=== PATIENT | male | born 1950 | race Caucasian/White ===

== ENCOUNTER 2018-06-21 09:46 | Inpatient (IN) ==
[2018-06-21] MEDS ORDERED: Ipratropium/Albuterol Neb 3 ML IH ONE (10:07)
--- NOTE | 2018-06-21 10:30 | Emergency Department Note ---
Disposition Clinical Impression: Adrenal mass COPD (chronic obstructive pulmonary disease) Qualifiers: COPD type: unspecified COPD Qualified Code(s): J44.9 - Chronic obstructive pulmonary disease, unspecified Disposition: Admitted As Inpatient Condition: Fair Referrals: Lety Awan APN [Primary Care Provider] - Forms: ED Satisfaction Letter Time of Disposition: 13:33 SOB HPI - General Chief Complaint: ED Shortness of Breath/Dyspnea Stated Complaint: Difficulty Breathing/"Possible Blood Clot" Time Seen by Provider: 06/21/18 09:56 Source: patient, family Mode of arrival: ambulatory Limitations: no limitations Nursing Notes Reviewed: Yes Vital Signs Reviewed: Yes - History of Present Illness 67-year-old male with history of COPD, heart failure with 4 stents presents for evaluation of multiple complaints 1 of which being difficulty breathing. Patient states he has been getting progressively short of breath over the last several days. Notes a nonproductive cough. No fevers. No chest pain. States that his dyspnea is worse with exertion but does have some dyspnea at rest. Patient does require BiPAP at night and was requiring earlier today to help with his work of breathing. Patient also states he was recently admitted for hyperglycemia 2 weeks ago. Patient is not a diabetic. Patient also notes a rash on his left lower groin and a recent discovery of an adrenal mass. Patient scheduled to see surgery with a follow-up CT scan. Patient denies abdominal pain or nausea vomiting. - Related Data Home Medications Medication Instructions Recorded Confirmed Tramadol HCl [Ultram] 50 mg PO QID PRN 11/18/16 05/21/18 Aspirin [Lo-Dose Aspirin EC] 81 mg PO DAILY 04/07/17 05/21/18 Albuterol Sulfate [Albuterol 2 puff IH Q4HR PRN 05/21/18 05/21/18 Inhaler] Atorvastatin [Lipitor] 40 mg PO HS 05/21/18 05/21/18 Cyanocobalamin/Folic AC/Vit B6 1 tab PO BID 05/21/18 05/21/18 [[place] Tablet] DULoxetine [Cymbalta] 30 mg PO DAILY 05/21/18 05/21/18 Furosemide [Lasix] 40 mg PO BID PRN 05/21/18 05/21/18 Gabapentin [Neurontin] 300 mg PO TID 05/21/18 05/21/18 Levomefolate/B6/B12/Algal Oil 1 tab PO DAILY 05/21/18 05/21/18 [Metanx Capsule] Losartan Potassium 100 mg PO DAILY 05/21/18 05/21/18 Potassium Chloride [K-Tab ER] 20 meq PO BID PRN 05/21/18 05/21/18 Tiotropium [place] [Spiriva 2 puff IH DAILY 05/21/18 05/21/18 Respimat] Previous Rx's Medication Instructions Recorded Budesonide/Formoterol 80/4.5 2 puff IH BIDR #1 inhaler 05/24/18 [Symbicort 80/4.5] Carvedilol [Coreg] 12.5 mg PO BID #30 tablet 05/24/18 Furosemide [Lasix] 20 mg PO DAILY tablet 05/24/18 Gabapentin [Neurontin] 800 mg PO TID capsule 05/24/18 Insulin DETEMIR [Levemir Flextouch] 10 unit SQ BID #5 insuln.pen 05/24/18 Potassium Chloride 20 meq PO DAILY tab.er.prt 05/24/18 glyBURIDE [GlyBURIDE] 5 mg PO 0800 #30 tablet 05/24/18 metFORMIN [Glucophage] 500 mg PO BIDWM #60 tablet 05/24/18 Allergies Allergy/AdvReac Type Severity Reaction Status Date / Time No Known Allergies Allergy Verified 12/22/17 11:12 All systems ED: reviewed and negative except as stated. Constitutional: Denies: fever Cardiovascular: Denies: chest pain Respiratory: Reports: cough, dyspnea Gastrointestinal: Denies: abdominal pain, nausea, vomiting Neurological: Reports: headache Past Medical History - Past Medical History Source: patient Medical history: Reports: arthritis, cancer, CHF, COPD, coronary artery disease, GERD, hypertension, myocardial infarction Surgical history: Reports: angioplasty/stent, knee replacement, other Psychiatric history: Reports: no psych history - Social History Smoking Status: Current every day smoker Smokeless Tobacco Status: No Alcohol use: Reports: none Drug use: Reports: none Physical Exam - General Limitations: no limitations General appearance: alert, in no apparent distress - Head Head exam: atraumatic, normocephalic, normal inspection - Eye Eye exam: Present: normal appearance - ENT ENT exam: normal exam - Neck Neck exam: Present: normal inspection - Chest Chest inspection: Present: normal inspection - Respiratory Respiratory exam: Present: normal lung sounds bilaterally, respiratory distress - Cardiovascular Cardiovascular exam: Present: regular rate - Abdominal Exam Abdominal exam: Present: soft, Non-Tender, other (Mild erythema in the left inguinal crease without any crepitus) - Extremities Exam Extremities exam: Present: normal inspection. Absent: pedal edema - Back Exam Back exam: Present: normal inspection - Neurological Exam Neurological exam: Present: alert, oriented X3, CN II-XII intact - Skin Skin exam: Present: warm, dry, intact, normal color Course Course Narrative: Patient seen and examined. Patient will get basic labs including a reentry. Patient also get a CT scan and pelvis with his history of disposition likely admission. - Reevaluation(s) Reevaluation #1: Patient seen and examined patient breathing has improved. Patient states that he does have a prior history of non-Hodgkin's lymphoma has been in remission for almost a year. Patient was updated on CT abdomen/pelvis. Time: 11:42 Reevaluation #2: Patient seen and examined. Patient is resting comfortably. Patient will be treated for COPD exacerbation. 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 Recommends patient to continue with outpatient plan evaluation for the adrenal mass. No emergent surgery indicated. Time: 13:24 Vital Signs Temperature 98.3 F 06/21/18 09:49 Pulse Rate 102 06/21/18 09:49 Respiratory Rate 22 06/21/18 09:49 Blood Pressure 124/83 06/21/18 09:49 O2 Sat by Pulse Oximetry 95 06/21/18 09:49 Temperature 98.3 F 06/21/18 09:49 Pulse Rate 93 06/21/18 12:04 Respiratory Rate 18 06/21/18 12:04 Blood Pressure 103/69 06/21/18 12:04 O2 Sat by Pulse Oximetry 95 06/21/18 12:04 Oxygen Delivery Oxygen Delivery Room Air Shortness of Breath/Dyspnea - [facility] Narrative Medical decision making narrative: Chest X-Ray 06/21/18 09:55 IMPRESSION: No evidence of acute cardiopulmonary disease. D/ / Alonzo Vigil MD / Alonzo Vigil MD Interpreting Provider: Alonzo Vigil MD Abdomen/Pelvis CT 06/21/18 10:08 IMPRESSION: Large right adrenal mass measuring approximately 8 x 6.5 x 7.7 cm in size. Given lack of FDG uptake on prior PET-CT as well as long-term stability this still likely represents adrenal adenoma. However, surgical resection should be considered given possibility of occlusion tumor and/or adrenal hemorrhage given the large size of the lesion. Enlarging centrally low attenuating left inguinal lesion measuring 4 x 3.1 x 6.3 cm in size with surrounding inflammatory changes. This may represent an enlarging centrally necrotic left inguinal lymph node given history of lymphoma. Abscess is also in the differential given its periods. Irregular 3.3 x 2.4 cm nodular opacity in the left lung base new since prior examinations. Dedicated chest CT may be helpful for further evaluation. PET-CT evaluation should also be considered. D/ / Ken Willams MD / Ken Willams MD Interpreting Provider: Ken Willams MD Patient present for concerns for dyspnea. Patient does have history of CHF and COPD. Patient was recently hospitalized for concerns of high blood sugar and was incidentally found to have an adrenal adenoma. Patient did have scheduled outpatient evaluation with surgery. Patient breathing improved after aerosols and steroids. Patient was placed on COPD coverage antibiotics. Patient did get a CT scan the abdomen pelvis given concerns of the adrenal mass. Patient is also complaining of some left lower inguinal pain with redness. Patient CT scan shows adrenal mass also shows a likely necrotic lymph node with his history of non-Hodgkin's some follow-up. Patient CTA of the chest does not reveal any recently. Patient felt comfortable being admitted for COPD exacerbation. - Lab Data Lab results reviewed: Yes I reviewed the patient's lab results. Result diagrams: 06/21/18 11:13 06/21/18 11:13 Lab Results 06/21/18 06/21/18 06/21/18 Range/Units 11:12 11:13 11:13 WBC 12.3 H (4.3-11.1) K/mcL RBC 4.33 (4.19-5.50) M/mcL Hgb 13.4 (12.9-16.9) g/dL Hct 39.9 (37.5-50.1) % MCV 92.1 (83.0-100.0) fL MCH 30.9 (28.0-33.3) pg MCHC 33.6 (31.6-35.5) g/dL RDW 16.0 H (11.5-14.5) % Plt Count 179 (140-400) K/mcL MPV 10.7 (9.4-12.4) fL Immature Gran % 2.0 (0-4) % Seg Neutrophils % 74.8 % Lymphocytes % 12.2 % Monocytes % 9.3 % Eosinophils % 1.2 % Basophils % 0.5 % Neutrophils # 9.2 H (1.6-8.9) K/mcL Lymphocytes # 1.5 (0.6-4.6) K/mcL Monocytes # 1.1 (0.0-1.3) K/mcL Eosinophils # 0.2 (0.0-0.6) K/mcL Basophils # 0.1 (0.0-0.2) K/mcL Sodium 136 (136-145) mEq/L Potassium 4.3 (3.5-5.1) mEq/L Chloride 101 (98-107) mEq/L Carbon Dioxide 26 (23-29) mEq/L BUN 16 (8-23) mg/dL Creatinine 0.84 (0.70-1.30) mg/dL Est GFR ( Amer) > 60 (> 60) Est GFR (Non-Af Amer) > 60 (> 60) BUN/Creatinine Ratio 19 (6-26) Glucose 180 H (70-105) mg/dL Calculated Osmolality 288 (280-300) Lactic Acid (0.5-2.2) mmol/L Calcium 9.9 (8.6-10.3) mg/dL Total Bilirubin 0.9 (0.3-1.0) mg/dL Direct Bilirubin 0.2 (0.0-0.2) mg/dL Indirect Bilirubin 0.7 (0.0-1.2) mg/dL AST 15 (13-39) Units/L ALT 26 (7-52) Units/L Alkaline Phosphatase 74 (34-104) Units/L Troponin I < 0.03 (< 0.04) ng/mL B-Natriuretic Peptide 80 (Less than 100) pg/mL Serum Total Protein 7.0 (6.4-8.9) g/dL Albumin 4.2 (3.5-5.7) g/dL Globulin 2.8 (2.4-3.5) g/dL Albumin/Globulin Ratio 1.5 (1.1-2.2) Urine Color (Yellow) Urine Clarity (Clear) Urine pH (5.0-8.0) pH Units Ur Specific [place] (1.010-1.025) Urine Protein (Neg-Trace) mg/dL Urine Glucose (UA) (Normal) mg/dL Urine Ketones (Negative) mg/dL Urine Blood (Negative) Urine Nitrite (Negative) Urine Bilirubin (Negative) Urine Urobilinogen (Normal) mg/dL Ur Leukocyte Esterase (Negative) Urine Microscopic RBC (0-3) per hpf Urine Microscopic WBC (0-3) per hpf Ur Squamous Epith Cells (None-Few) per lpf Urine Bacteria (None-Few) per hpf Hyaline Casts (None-Few) per lpf Ur Culture Indicated? (NO) 06/21/18 06/21/18 Range/Units 11:13 12:23 WBC (4.3-11.1) K/mcL RBC (4.19-5.50) M/mcL Hgb (12.9-16.9) g/dL Hct (37.5-50.1) % MCV (83.0-100.0) fL MCH (28.0-33.3) pg MCHC (31.6-35.5) g/dL RDW (11.5-14.5) % Plt Count (140-400) K/mcL MPV (9.4-12.4) fL Immature Gran % (0-4) % Seg Neutrophils % % Lymphocytes % % Monocytes % % Eosinophils % % Basophils % % Neutrophils # (1.6-8.9) K/mcL Lymphocytes # (0.6-4.6) K/mcL Monocytes # (0.0-1.3) K/mcL Eosinophils # (0.0-0.6) K/mcL Basophils # (0.0-0.2) K/mcL Sodium (136-145) mEq/L Potassium (3.5-5.1) mEq/L Chloride (98-107) mEq/L Carbon Dioxide (23-29) mEq/L BUN (8-23) mg/dL Creatinine (0.70-1.30) mg/dL Est GFR ( Amer) (> 60) Est GFR (Non-Af Amer) (> 60) BUN/Creatinine Ratio (6-26) Glucose (70-105) mg/dL Calculated Osmolality (280-300) Lactic Acid 1.3 (0.5-2.2) mmol/L Calcium (8.6-10.3) mg/dL Total Bilirubin (0.3-1.0) mg/dL Direct Bilirubin (0.0-0.2) mg/dL Indirect Bilirubin (0.0-1.2) mg/dL AST (13-39) Units/L ALT (7-52) Units/L Alkaline Phosphatase (34-104) Units/L Troponin I (< 0.04) ng/mL B-Natriuretic Peptide (Less than 100) pg/mL Serum Total Protein (6.4-8.9) g/dL Albumin (3.5-5.7) g/dL Globulin (2.4-3.5) g/dL Albumin/Globulin Ratio (1.1-2.2) Urine Color Dark Yellow (Yellow) Urine Clarity Clear (Clear) Urine pH 7.0 (5.0-8.0) pH Units Ur Specific [place] 1.017 (1.010-1.025) Urine Protein 30 H (Neg-Trace) mg/dL Urine Glucose (UA) Normal (Normal) mg/dL Urine Ketones Trace H (Negative) mg/dL Urine Blood Negative (Negative) Urine Nitrite Negative (Negative) Urine Bilirubin Small H (Negative) Urine Urobilinogen Normal (Normal) mg/dL Ur Leukocyte Esterase Trace H (Negative) Urine Microscopic RBC 0-3 (0-3) per hpf Urine Microscopic WBC 0-3 (0-3) per hpf Ur Squamous Epith Cells Many H (None-Few) per lpf Urine Bacteria None Seen (None-Few) per hpf Hyaline Casts None Seen (None-Few) per lpf Ur Culture Indicated? YES A (NO) - Radiology Data Radiology results reviewed: Yes I reviewed the patient's radiology results. Chest X-Ray 06/21/18 09:55 IMPRESSION: No evidence of acute cardiopulmonary disease. D/ / Alonzo Vigil MD / Alonzo Vigil MD Interpreting Provider: Alonzo Vigil MD Abdomen/Pelvis CT 06/21/18 10:08 IMPRESSION: Large right adrenal mass measuring approximately 8 x 6.5 x 7.7 cm in size. Given lack of FDG uptake on prior PET-CT as well as long-term stability this still likely represents adrenal adenoma. However, surgical resection should be considered given possibility of occlusion tumor and/or adrenal hemorrhage given the large size of the lesion. Enlarging centrally low attenuating left inguinal lesion measuring 4 x 3.1 x 6.3 cm in size with surrounding inflammatory changes. This may represent an enlarging centrally necrotic left inguinal lymph node given history of lymphoma. Abscess is also in the differential given its appearance. Irregular 3.3 x 2.4 cm nodular opacity in the left lung base new since prior examinations. Dedicated chest CT may be helpful for further evaluation. PET-CT evaluation should also be considered. D/ / 06/21/2018 10:51:03 Ken Willams MD / [email or web address] Interpreting Provider: Ken Willams MD Chest CTA 06/21/18 11:21 IMPRESSION: Negative CTA for pulmonary embolus. Finding in left lung base most consistent with an area of atelectasis or consolidative infiltrate. Lung carcinoma is thought highly unlikely. Attention on follow-up is recommended. Right adrenal mass. Please refer to the report and discussion on CT of the abdomen performed earlier in the same day. D/ / 06/21/2018 13:11:35 Rigo Franklin MD / Clarissa Trujillo Interpreting Provider: Rigo Franklin MD - EKG Data EKG attestation: Yes I reviewed and interpreted this EKG. EKG shows normal: Reports: sinus rhythm Rate: Reports: normal Rhythm: Reports: NSR [place]/QRS: Reports: left axis deviation Q waves: Reports: III, v1 Interpretation: Reports: no acute changes, nonspecific ST-T wave changes S.B.A.R. - S.B.A.R. Situation: Demographics Background: Presenting Complaint Assessment: Vital Signs, Course and respsone to treatment Recommendation: Barrier(s) to disposition, Recommendation based on pending studies, treatments, or consults S.B.A.R. Report Given to: Hospitalist Simone Repor Time: 13:31 Attestation Statement - Attestation Attestation: This documentation is done with the assistance of Dragon dictation. Despite efforts made to ensure accuracy, there may be inaccuracies in fitter type bar and segment or spelling and typographical errors. I examined this patient and my medical decision-making was reviewed with the Resident Physician. I agree with the documented findings, disposition and treatment plan as described except to the extent set forth below. Patient seen and evaluated today by Dr. Hernandez and myself, I agree with his evaluation management plan, supervise care the patient's stay. Patient comes in with increased difficulty with breathing some left leg pain and discolorations Thursday has a admission it sounds like 2 weeks ago here which we will review. We will go ahead and order the labs chest x-ray and reassess. He is in agreement with plan. Most likely admission.
[2018-06-21] MEDS ORDERED: Isovue-370 500 ML BOTTLE IVP ONE (11:21)
[2018-06-21 11:29] LABS: Basophils # 0.1 K/mcL (0.0-0.2); Basophils % 0.5 %; Eosinophils # 0.2 K/mcL (0.0-0.6); Eosinophils % 1.2 %; Hematocrit 39.9 % (37.5-50.1); Hemoglobin 13.4 g/dL (12.9-16.9); Lymphocytes # 1.5 K/mcL (0.6-4.6); Lymphocytes % 12.2 %; Mean Corpuscular HGB Conc 33.6 g/dL (31.6-35.5); Mean Corpuscular Hemoglobin 30.9 pg (28.0-33.3); Mean Corpuscular Volume 92.1 fL (83.0-100.0); Mean Platelet Volume 10.7 fL (9.4-12.4); Monocytes # 1.1 K/mcL (0.0-1.3); Monocytes % 9.3 %; Neutrophils # 9.2 K/mcL (1.6-8.9); Platelet Count 179 K/mcL (140-400); Red Blood Count 4.33 M/mcL (4.19-5.50); Segmented Neutrophils % 74.8 %
[2018-06-21 11:49] LABS: Alanine Aminotransferase 26 Units/L (7-52); Albumin 4.2 g/dL (3.5-5.7); Albumin/Globulin Ratio 1.5 (1.1-2.2); Alkaline Phosphatase 74 Units/L (34-104); Aspartate Amino Transferase 15 Units/L (13-39); BUN/Creatinine Ratio 19 (6-26); Bilirubin,Direct 0.2 mg/dL (0.0-0.2); Bilirubin,Indirect 0.7 mg/dL (0.0-1.2); Bilirubin,Total 0.9 mg/dL (0.3-1.0); Blood Urea Nitrogen 16 mg/dL (8-23); Calcium 9.9 mg/dL (8.6-10.3); Carbon Dioxide 26 mEq/L (23-29); Chloride 101 mEq/L (98-107); Globulin 2.8 g/dL (2.4-3.5); Glucose 180 mg/dL (70-105); Osmolality,Calculated 288 (280-300); Potassium 4.3 mEq/L (3.5-5.1); Sodium 136 mEq/L (136-145); Troponin I < 0.03 ng/mL (< 0.04); eGFR For Non-African Americans > 60 (> 60)
[2018-06-21 12:34] LABS: Bilirubin,Urine Small (Negative); Blood,Urine Negative (Negative); Clarity,Urine Clear (Clear); Color,Urine Dark Yellow (Yellow); Glucose,Urine (UA) Normal (Normal); Ketones,Urine Trace mg/dL (Negative); Leukocyte Esterase,Urine Trace (Negative); Nitrite,Urine Negative (Negative); Protein,Urine 30 mg/dL (Neg-Trace); Specific Gravity,Urine 1.017 (1.010-1.025); Urobilinogen,Urine Normal (Normal)
[2018-06-21 12:37] LABS: Bacteria,Urine None Seen per hpf (None-Few); Hyaline Casts,Urine None Seen per lpf (None-Few); RBC,Urine 0-3 per hpf (0-3); Squamous Epithelial Cell,Urine Many per lpf (None-Few); WBC,Urine 0-3 per hpf (0-3)
[2018-06-21] MEDS ORDERED: predniSONE 20 MG TABLET PO ONE (13:15)
[2018-06-21] MEDS ORDERED: Azithromycin 500 MG in D5% in Water 250 ML IVPB ONE (13:19)
[2018-06-21] MEDS ORDERED: cefTRIAXone 1,000 MG in Water for inj. (sterile) 20 ML 10 ML IVP ONE (13:19)
[2018-06-21] MEDS ORDERED: Naloxone 0.4 MG/ML INJ IVP PRN (15:14)
[2018-06-21] MEDS ORDERED: traMADol 50 MG TABLET PO PRN (15:16)
[2018-06-21] MEDS ORDERED: D5% in Water 1,000 ML IVC PRN (15:17)
[2018-06-21] MEDS ORDERED: Dextrose Gel 15 GM/37.5 ML TUBE PO PRN ×2 (15:17)
[2018-06-21] MEDS ORDERED: *HR* Dextrose 50 % in Water (Syg) 50 ML SYRINGE IVP PRN (15:17)
[2018-06-21] MEDS: Ipratropium/Albuterol Neb 3 ML IH SCH ×3 (16:18→23:54)
--- NOTE | 2018-06-21 16:46 | Internal Med History&Physical ---
Date of Encounter: 06/21/18 Time of Encounter: 16:00 Internal Medicine - H&P: HPI Chief complaint: left groin redness and shortness of breath History of present illness: Mr. Wilkes is a 67 year old male with pmh of COPD, non hdogkins lymphoma, adrenal mass, chronic systolic CHF presenting with redness in the left groin of 1 day duration and shortness of breath. Patient says the main reason he came in was because he has noticed streaks of red in his left inner thigh and around thegroin, and he says the lymph node in the left groin feels painful. He denies any fevers or chill. He also complains of worsening shortness of breath and a cough productive of yellow phlegm in the last week. He has had some lower extremity swelling as well. In the ER, he had a CT abdomen done showing an enlarging centrally necrotic left inguinal lymph node with a possible abscess. He has been given breathing treatments and zosyn and he is being admitted for further management Past Med Surg Social Fam HX - Past Medical History Medical history: arthritis, cancer, CHF, COPD, coronary artery disease, GERD, hypertension, myocardial infarction Additional medical history: lumbar disease, non-hodgkins Psychiatric history: no psych history - Past Surgical History Surgical History: angioplasty/stent, knee replacement, other Additional surgical history: cardiac cath x4, Lymphoma - Social History Smoking Status: Current every day smoker Smokeless Tobacco Status: No Alcohol use: none Drug use: none - Family History Mother Living Status: Hx Family Cancer: Yes (lung) Father Living Status: Hx Family Cardiac Disorders: Yes ([place]) Internal Medicine - H&P: Meds Tramadol HCl [Ultram] 50 mg PO QID PRN 11/18/16 [History] Aspirin [Lo-Dose Aspirin EC] 81 mg PO DAILY 04/07/17 [History] Albuterol Sulfate [Albuterol Inhaler] 2 puff IH Q4HR PRN 05/21/18 [History] Cyanocobalamin/Folic AC/Vit B6 [Folbee Tablet] 1 tab PO DAILY 05/21/18 [History] Furosemide [Lasix] 40 mg PO DAILY PRN 05/21/18 [History] Gabapentin [Neurontin] 900 mg PO TID 05/21/18 [History] Losartan Potassium 100 mg PO DAILY 05/21/18 [History] Potassium Chloride [K-Tab ER] 20 meq PO DAILY PRN 05/21/18 [History] Tiotropium [place] [Spiriva Respimat] 2 puff IH DAILY 05/21/18 [History] Insulin DETEMIR [Levemir Flextouch] 10 unit SQ BID #5 insuln.pen 05/24/18 [Rx] metFORMIN [Glucophage] 500 mg PO BIDWM #60 tablet 05/24/18 [Rx] Albuterol Neb [Proventil Neb] 2.5 mg IH Q4HR PRN 06/21/18 [History] Carvedilol [Coreg] 12.5 mg PO DAILY@0800 06/21/18 [History] Fluticasone/Vilanterol [Breo Ellipta 100-25 Mcg INH] 1 each IH DAILY 06/21/18 [History] Lidocaine 1 gm TP BID PRN 06/21/18 [History] Multivitamin [One Daily Essential] 1 each PO DAILY 06/21/18 [History] Rosuvastatin Calcium [Crestor] 10 mg PO DAILY 06/21/18 [History] Spironolactone [Aldactone] 50 mg PO DAILY 06/21/18 [History] glyBURIDE [GlyBURIDE] 5 mg PO DAILY@1200 06/21/18 [History] Allergy/AdvReac Type Severity Reaction Status Date / Time No Known Allergies Allergy Verified 12/22/17 11:12 All Systems PM: A 10-system review of systems was performed and is negative for pertinent findings except as documented above in the HPI. - Constitutional Constitutional: no chills, no fever(s), no night sweats - EENT Eyes: no change in vision, no discharge, no pain, no photophobia Ears: no ear discharge, no ear pain, no tinnitus Nose, mouth and throat: no dysphagia, no nasal discharge, no neck pain, no sore throat - Cardiovascular Cardiovascular ROS IM: dyspnea, no chest pain, no diaphoresis, no lightheadedness, no palpitations, no syncope - Respiratory Respiratory: cough, dyspnea, wheezing, excessive phlegm production - Gastrointestinal Gastrointestinal: no abdominal pain, no diarrhea, no hematemesis, no hematochezia, no melena, no nausea, no vomiting - Musculoskeletal Musculoskeletal ROS IM: no numbness, no tingling - Integumentary Integumentary IM: erythema, no rash, no unusual bruising - Neurological Neurological ROS: no confusion, no convulsions, no focal weakness, no numbness, no tingling, no tremor(s) - Hematologic/Lymphatic Hematologic/Lymphatic: no easy bruising - Constitutional Vitals: Temp Pulse Resp BP Pulse Ox 98.3 F 104 18 114/74 95 06/21/18 09:49 06/21/18 15:46 06/21/18 15:46 06/21/18 15:46 06/21/18 15:46 General appearance: Present: A&O X 3, morbidly obese Exam: has wheezing on auscultation Redness along left groin - Head Head exam: Present: atraumatic, normocephalic - Eye Eye exam: Present: PERRL, conjuntiva pink, sclera anicteric Pupils: Present: PERRL - Neck Neck exam general surgery: Present: supple, trachea midline. Absent: lymphadenopathy - Respiratory Respiratory exam: Present: decreased breath sounds, wheezes. Absent: accessory muscle use, rales, rhonchi - Cardiovascular Cardiovascular exam: Present: RRR, +S1, +S2. Absent: diastolic murmur, gallop, rubs, systolic murmur - GI/Abdominal GI/Abdominal exam: Present: normal bowel sounds, soft, no peritoneal signs. Absent: distended, tenderness - Extremities Exam Extremities exam: Present: warm, radial pulses palpable and symmetrical. Absent: calf tenderness, cyanotic, pedal edema Additional comments: redness along the left groin - Neurological Exam Neurological exam: Present: CN II-XII intact, oriented X3, no focal deficits. Absent: pronater drift, facial droop, speech deficit - Skin Skin exam: Present: dry, intact Internal Med - H&P Results - Labs CBC & Chem 7: 06/21/18 11:13 06/21/18 11:13 Labs: Short CBC 06/21/18 Range/Units 11:13 WBC 12.3 H (4.3-11.1) K/mcL Hgb 13.4 (12.9-16.9) g/dL Hct 39.9 (37.5-50.1) % Plt Count 179 (140-400) K/mcL Neutrophils # 9.2 H (1.6-8.9) K/mcL BMP 06/21/18 11:13 Sodium 136 Potassium 4.3 Chloride 101 Carbon Dioxide 26 BUN 16 Creatinine 0.84 Glucose 180 H Calcium 9.9 Cardiac Enzymes 06/21/18 Range/Units 11:13 Troponin I < 0.03 (< 0.04) ng/mL Liver Function 06/21/18 Range/Units 11:13 Total Bilirubin 0.9 (0.3-1.0) mg/dL Direct Bilirubin 0.2 (0.0-0.2) mg/dL AST 15 (13-39) Units/L ALT 26 (7-52) Units/L Alkaline Phosphatase 74 (34-104) Units/L Albumin 4.2 (3.5-5.7) g/dL Urine 06/21/18 Range/Units 12:23 Urine Color Dark Yellow (Yellow) Urine Clarity Clear (Clear) Urine pH 7.0 (5.0-8.0) pH Units Ur Specific [place] 1.017 (1.010-1.025) Urine Protein 30 H (Neg-Trace) mg/dL Urine Glucose (UA) Normal (Normal) mg/dL - Impressions ITS Impressions Chest X-Ray 06/21/18 09:55 IMPRESSION: No evidence of acute cardiopulmonary disease. D/ / Alonzo Vigil MD / Alonzo Vigil MD Interpreting Provider: Alonzo Vigil MD Abdomen/Pelvis CT 06/21/18 10:08 IMPRESSION: Large right adrenal mass measuring approximately 8 x 6.5 x 7.7 cm in size. Given lack of FDG uptake on prior PET-CT as well as long-term stability this still likely represents adrenal adenoma. However, surgical resection should be considered given possibility of occlusion tumor and/or adrenal hemorrhage given the large size of the lesion. Enlarging centrally low attenuating left inguinal lesion measuring 4 x 3.1 x 6.3 cm in size with surrounding inflammatory changes. This may represent an enlarging centrally necrotic left inguinal lymph node given history of lymphoma. Abscess is also in the differential given its appearance. Irregular 3.3 x 2.4 cm nodular opacity in the left lung base new since prior examinations. Dedicated chest CT may be helpful for further evaluation. PET-CT evaluation should also be considered. D/ / 06/21/2018 10:51:03 Ken Willams MD / bcarter Interpreting Provider: Ken Willams MD Chest CTA 06/21/18 11:21 IMPRESSION: Negative CTA for pulmonary embolus. Finding in left lung base most consistent with an area of atelectasis or consolidative infiltrate. Lung carcinoma is thought highly unlikely. Attention on follow-up is recommended. Right adrenal mass. Please refer to the report and discussion on CT of the abdomen performed earlier in the same day. D/ / 06/21/2018 13:11:35 Rigo Franklin MD / Clarissa Trujillo Interpreting Provider: Rigo Franklin MD - Assessment and Plan (1) Cellulitis of left groin Current Visit: Yes Status: Acute Assessment and plan: Pt comes in with redness of left groin of [address] abdomen shows enlarging centrally necrotic left inguinal lymph node and possible abscess Pt has been on chemotherapy previously for non hodgkns lymphoma Will start on zosyn, obtain cultures. Surgery and oncology consulted and appreciate recs (2) Acute exacerbation of chronic obstructive airways disease Current Visit: Yes Status: Acute Assessment and plan: Comes in with coughing with yellow phlegm and wheezing for about a week On nebs, steroids and antibiotics (3) Chronic systolic (congestive) heart failure Current Visit: Yes Status: Acute Assessment and plan: Acute worsening of chronic systolic CHF Pt has lower extremity swelling. On lasix BID (4) Non Hodgkin's lymphoma Current Visit: Yes Status: Acute Assessment and plan: see #1. Oncology consulted Qualifiers: Qualified Code(s): C85.90 - Non-Hodgkin lymphoma, unspecified, unspecified site (5) Diabetes mellitus Current Visit: Yes Status: Acute Assessment and plan: Continue insulin and monitor fingersticks Qualifiers: Qualified Code(s): E11.9 - Type 2 diabetes mellitus without complications (6) DVT prophylaxis Current Visit: Yes Status: Acute Assessment and plan: Heparin sc - Time Spent With Patient Total time spent is greater than 50% in coordination of care (as documented) at patient's floor/unit and/or counseling patient:
[2018-06-21] MEDS: MethylPREDNISolone 40 MG/ML VIAL IVP SCH (18:13)
[2018-06-21] MEDS: Furosemide 40 MG/4 ML VIAL IVP SCH (18:13)
[2018-06-21] MEDS: Insulin LISPRO 300 UNITS/3 ML VIAL SQ SCH (18:13)
[2018-06-21] MEDS: Piperacillin/Tazobactam 3.375 GM in 0.9 % Sodium Chloride Mini Bag 100 ML IVPB SCH (18:14)
--- NOTE | 2018-06-21 19:04 | AcuteCare Surgery Consult Note ---
Date of Encounter: 06/21/18 Time of Encounter: 18:55 Assessment and Plan (1) Abscess of groin, left Current Visit: Yes Status: Acute Necrotic left inguinal LN vs. Abscess. +leukocytosis. Start IV abx. NPO after MN. If response to abx is not adequate will recommend OR for I&D; excision. (2) Hypertension Current Visit: No Status: Acute manage per primary service Qualifiers: Hypertension type: essential hypertension Qualified Code(s): I10 - Essential (primary) hypertension (3) Adrenal mass Current Visit: Yes Status: Acute On right. Pt to see Dr. Mota outpt regarding right adrenal mass. Negative FDG uptake on PET; most likely adenoma. (4) Non Hodgkin's lymphoma Current Visit: Yes Status: Acute by hx Qualifiers: Qualified Code(s): C85.90 - Non-Hodgkin lymphoma, unspecified, unspecified site (5) Diabetes mellitus Current Visit: Yes Status: Acute manage per primary service Qualifiers: Diabetes mellitus type: type 2 Diabetes mellitus manager long term care insulin use: with prison use Diabetes mellitus complication status: without complication Qualified Code(s): E11.9 - Type 2 diabetes mellitus without complications; Z79.4 - rn long term care (current) use of insulin History of Present Illness Consult date: 06/21/18 Reason for consult: other (left groin necrotic LN vs abscess) Requesting physician: Allan Burdick History of present illness: This 67 y /o male presents to [facility] ED c/o redness and pain in left groin. He reports that this has been going on for a few days. He reports at first it felt like there was a scratch in his groin. Then there was a lump. Now, there is redness all the was from groin to thigh. He is worried that there is a recurrent lymph node cancer. He denies fevers. Pt to see Dr. Mota regarding adrenal mass on right. Appt scheduled and recommend keep as outpt. Past Med Surg Social Fam HX - Past Medical History Medical history: arthritis, cancer, CHF, COPD, coronary artery disease, GERD, hypertension, myocardial infarction Additional medical history: lumbar disease, non-hodgkins Psychiatric history: no psych history - Past Surgical History Surgical History: angioplasty/stent, knee replacement, other Additional surgical history: cardiac cath x4, Lymphoma - Social History Smoking Status: Current every day smoker Smokeless Tobacco Status: No Alcohol use: none Drug use: none - Family History Mother Living Status: Hx Family Cancer: Yes (lung) Father Living Status: Hx Family Cardiac Disorders: Yes ([place]) Medications and Allergies Tramadol HCl [Ultram] 50 mg PO QID PRN 11/18/16 [History] Aspirin [Lo-Dose Aspirin EC] 81 mg PO DAILY 04/07/17 [History] Albuterol Sulfate [Albuterol Inhaler] 2 puff IH Q4HR PRN 05/21/18 [History] Cyanocobalamin/Folic AC/Vit B6 [Folbee Tablet] 1 tab PO DAILY 05/21/18 [History] Furosemide [Lasix] 40 mg PO DAILY PRN 05/21/18 [History] Gabapentin [Neurontin] 900 mg PO TID 05/21/18 [History] Losartan Potassium 100 mg PO DAILY 05/21/18 [History] Potassium Chloride [K-Tab ER] 20 meq PO DAILY PRN 05/21/18 [History] Tiotropium [place] [Spiriva Respimat] 2 puff IH DAILY 05/21/18 [History] Insulin DETEMIR [Levemir Flextouch] 10 unit SQ BID #5 insuln.pen 05/24/18 [Rx] metFORMIN [Glucophage] 500 mg PO BIDWM #60 tablet 05/24/18 [Rx] Albuterol Neb [Proventil Neb] 2.5 mg IH Q4HR PRN 06/21/18 [History] Carvedilol [Coreg] 12.5 mg PO DAILY@0800 06/21/18 [History] Fluticasone/Vilanterol [Breo Ellipta 100-25 Mcg INH] 1 each IH DAILY 06/21/18 [History] Lidocaine 1 gm TP BID PRN 06/21/18 [History] Multivitamin [One Daily Essential] 1 each PO DAILY 06/21/18 [History] Rosuvastatin Calcium [Crestor] 10 mg PO DAILY 06/21/18 [History] Spironolactone [Aldactone] 50 mg PO DAILY 06/21/18 [History] glyBURIDE [GlyBURIDE] 5 mg PO DAILY@1200 06/21/18 [History] Allergy/AdvReac Type Severity Reaction Status Date / Time No Known Allergies Allergy Verified 12/22/17 11:12 Review of Systems All systems PM: The remainder of the systems were reviewed and are negative - Constitutional no anorexia, no chills, no fatigue, no fever(s), no night sweats, no weakness - EENT Nose, mouth and throat: no dry mouth, no dysphagia, no nasal congestion, no nasal discharge, no sinus pain, no sinus pressure, no sore throat - Cardiovascular no chest pain, no diaphoresis, no dyspnea, no edema - Respiratory no cough, no dyspnea, no wheezing - Gastrointestinal no abdominal pain, no bloating, no constipation, no diarrhea, no nausea, no vomiting - Genitourinary no dysuria, no hematuria, no urinary frequency - Musculoskeletal no back pain, no joint swelling, no limited range of motion, no neck pain - Integumentary other (Lump in left groin and redness of skin from left groin and thigh), no dry skin, no pruritus, no rash, no wounds, no jaundice - Neurological no confusion, no dizziness, no focal weakness, no weakness - Psychiatric no anxiety, no depression - Hematologic/Lymphatic as per HPI (hx lymphoma), other General Surgery Exam Initial Vital Signs Temp Pulse Resp BP Pulse Ox 98.3 F 102 22 124/83 95 06/21/18 09:49 06/21/18 09:49 06/21/18 09:49 06/21/18 09:49 06/21/18 09:49 Exam Initial Vital Signs Temp Pulse Resp BP Pulse Ox 98.3 F 102 22 124/83 95 06/21/18 09:49 06/21/18 09:49 06/21/18 09:49 06/21/18 09:49 06/21/18 09:49 - General physical appearance well developed, well nourished, no distress. negative: jaundice - Eyes PERRL, normal ocular movement. negative: icteric - ENT normal mucosa, no congestion. negative: nasal discharge - Neck no masses, no lymphadectomy, no venous distension - Respiratory normal respiratory effort, clear to auscultation - Abdomen Abdomen: soft, non tender - Genitourinary normal penis with no external lesions - Integumentary other (mild erythema of left upper thigh) - Neurologic CN 2-12 grossly intact, normal coordination - Musculoskeletal normal posture - Psychiatric oriented to time, oriented to person, oriented to place - Additional Findings Vague lymphadenopathy left groin Results - Labs 05/13/19 11:13 06/21/18 11:13 Abnormal lab results WBC 12.3 K/mcL (4.3-11.1) H 06/21/18 11:13 RDW 16.0 % (11.5-14.5) H 06/21/18 11:13 9.2 K/mcL (1.6-8.9) H 06/21/18 11:13 Glucose 180 mg/dL (70-105) H 06/21/18 11:13 POC Glucose 170 mg/dL (70-99) H 06/21/18 16:50 30 mg/dL (Neg-Trace) H 06/21/18 12:23 Trace mg/dL (Negative) H 06/21/18 12:23 Small (Negative) H 06/21/18 12:23 Ur Leukocyte Esterase Trace (Negative) H 06/21/18 12:23 Ur Squamous Epith Cells Many per lpf (None-Few) H 06/21/18 12:23 Ur Culture Indicated? YES (NO) A 06/21/18 12:23 Diabetes panel 06/21/18 Range/Units 11:13 Sodium 136 (136-145) mEq/L Potassium 4.3 (3.5-5.1) mEq/L Chloride 101 (98-107) mEq/L Carbon Dioxide 26 (23-29) mEq/L BUN 16 (8-23) mg/dL Creatinine 0.84 (0.70-1.30) mg/dL Glucose 180 H (70-105) mg/dL Calcium 9.9 (8.6-10.3) mg/dL AST 15 (13-39) Units/L ALT 26 (7-52) Units/L Alkaline Phosphatase 74 (34-104) Units/L Albumin 4.2 (3.5-5.7) g/dL Calcium panel 06/21/18 Range/Units 11:13 Calcium 9.9 (8.6-10.3) mg/dL Albumin 4.2 (3.5-5.7) g/dL Pituitary panel 06/21/18 Range/Units 11:13 Sodium 136 (136-145) mEq/L Potassium 4.3 (3.5-5.1) mEq/L Chloride 101 (98-107) mEq/L Carbon Dioxide 26 (23-29) mEq/L BUN 16 (8-23) mg/dL Creatinine 0.84 (0.70-1.30) mg/dL Glucose 180 H (70-105) mg/dL Calcium 9.9 (8.6-10.3) mg/dL Adrenal panel 06/21/18 Range/Units 11:13 Sodium 136 (136-145) mEq/L Potassium 4.3 (3.5-5.1) mEq/L Chloride 101 (98-107) mEq/L Carbon Dioxide 26 (23-29) mEq/L BUN 16 (8-23) mg/dL Creatinine 0.84 (0.70-1.30) mg/dL Glucose 180 H (70-105) mg/dL Calcium 9.9 (8.6-10.3) mg/dL Total Bilirubin 0.9 (0.3-1.0) mg/dL AST 15 (13-39) Units/L ALT 26 (7-52) Units/L Alkaline Phosphatase 74 (34-104) Units/L Albumin 4.2 (3.5-5.7) g/dL All other labs normal. - Imaging CT scan - abdomen: image reviewed CT scan - pelvis: image reviewed (+ left inguinal necrotic LN vs abscess) Consult Discharge Plan - Plan Referrals: Lety Awan APN [Primary Care Provider] -
[2018-06-21] MEDS: Budesonide/Formoterol 160/4.5 1 PUFF INH IH SCH (19:54)
[2018-06-21] MEDS: Gabapentin 300 MG CAPSULE PO SCH (21:57)
[2018-06-21] MEDS: Insulin DETEMIR 100 UNIT/ML X5UNITS SQ SCH (22:36)
[2018-06-22] MEDS: Piperacillin/Tazobactam 3.375 GM in 0.9 % Sodium Chloride Mini Bag 100 ML IVPB SCH ×3 (01:02→16:49)
[2018-06-22] MEDS: MethylPREDNISolone 40 MG/ML VIAL IVP SCH ×2 (01:02→09:07)
[2018-06-22 03:19] LABS: Basophils % 0.3 %; Hematocrit 38.6 % (37.5-50.1); Immature Granulocytes % 1.4 % (0-4); Lymphocytes % 6.8 %; Mean Corpuscular HGB Conc 33.7 g/dL (31.6-35.5); Mean Corpuscular Volume 91.9 fL (83.0-100.0); Mean Platelet Volume 10.8 fL (9.4-12.4); Monocytes # 0.6 K/mcL (0.0-1.3); Monocytes % 3.9 %; Neutrophils # 13.5 K/mcL (1.6-8.9); Platelet Count 176 K/mcL (140-400); Red Cell Distribution Width 16.1 % (11.5-14.5); Segmented Neutrophils % 87.6 %
[2018-06-22 03:36] LABS: BUN/Creatinine Ratio 23 (6-26); Blood Urea Nitrogen 23 mg/dL (8-23); Calcium 9.7 mg/dL (8.6-10.3); Carbon Dioxide 26 mEq/L (23-29); Chloride 99 mEq/L (98-107); Glucose 422 mg/dL (70-105); Osmolality,Calculated 300 (280-300); Phosphorous 2.7 mg/dL (2.7-4.5); Potassium 4.2 mEq/L (3.5-5.1); Sodium 134 mEq/L (136-145); eGFR For Non-African Americans > 60 (> 60)
--- NOTE | 2018-06-22 03:57 | Electrocardiograph Report ---
[facility] Test Date: 2018-06-21 Pat Name: Kareem Wilkes Department: [id number] Room: 3B21 Gender: M [employer] Work[employer]: : 1950 Requested By: Ishaan De La Rosa Order Number: [id number] Reading MD: Sherwin Yates Measurements Intervals [place] Rate: 97 P: 67 UT: 168 QRS: -17 QRSD: 90 T: 65 QT: 415 QTc: 528 Interpretive Statements Sinus rhythm Electronically Signed On 06-22-2018 3:56:06 EDT by Sherwin Yates
[2018-06-22] MEDS: Ipratropium/Albuterol Neb 3 ML IH SCH ×7 (04:08→23:45)
[2018-06-22] MEDS: Budesonide/Formoterol 160/4.5 1 PUFF INH IH SCH ×2 (07:43→20:21)
[2018-06-22] MEDS ORDERED: Insulin LISPRO 300 UNITS/3 ML VIAL SQ SCH ×2 (08:34→14:19)
[2018-06-22] MEDS ORDERED: Aspirin Enteric Coated 81 MG Tablet PO SCH (09:00)
[2018-06-22] MEDS: Gabapentin 300 MG CAPSULE PO SCH ×3 (09:06→19:29)
[2018-06-22] MEDS: Furosemide 40 MG/4 ML VIAL IVP SCH ×2 (09:06→16:48)
[2018-06-22] MEDS: Insulin DETEMIR 100 UNIT/ML X5UNITS SQ SCH ×2 (09:07→20:58)
[2018-06-22] MEDS: Insulin LISPRO 300 UNITS/3 ML VIAL SQ SCH ×2 (09:31→16:49)
--- NOTE | 2018-06-22 11:36 | Anesthesia Evaluation PreOp ---
<Josiane Rivero - Last Filed: 06/22/18 11:34> Date of Encounter: 06/22/18 Time of Encounter: 11:34 - Past History Planned Operation: I and D of left Groin abcess Cardiac History: [place], CHF (EF 30%), HTN, Cardiac Stent (x4, no new chest pain sx of shortness of breath) Pulmonary History: Smoker, COPD LINE OUT MAN History: Denies Any Significant HX Other Medical History: GERD, Other (R adrenal mass, non hodgkins lymphoma in remission following chemo) Anesthesia History: No Prior Anesthetic Complications, Past Anesthesia (EBUS) Alcohol Use: none Drug use: none Medications and Allergies Tramadol HCl [Ultram] 50 mg PO QID PRN 11/18/16 [History] Aspirin [Lo-Dose Aspirin EC] 81 mg PO DAILY 04/07/17 [History] Albuterol Sulfate [Albuterol Inhaler] 2 puff IH Q4HR PRN 05/21/18 [History] Cyanocobalamin/Folic AC/Vit B6 [Folbee Tablet] 1 tab PO DAILY 05/21/18 [History] Furosemide [Lasix] 40 mg PO DAILY PRN 05/21/18 [History] Gabapentin [Neurontin] 900 mg PO TID 05/21/18 [History] Losartan Potassium 100 mg PO DAILY 05/21/18 [History] Potassium Chloride [K-Tab ER] 20 meq PO DAILY PRN 05/21/18 [History] Tiotropium [place] [Spiriva Respimat] 2 puff IH DAILY 05/21/18 [History] Insulin DETEMIR [Levemir Flextouch] 10 unit SQ BID #5 insuln.pen 05/24/18 [Rx] metFORMIN [Glucophage] 500 mg PO BIDWM #60 tablet 05/24/18 [Rx] Albuterol Neb [Proventil Neb] 2.5 mg IH Q4HR PRN 06/21/18 [History] Carvedilol [Coreg] 12.5 mg PO DAILY@0800 06/21/18 [History] Fluticasone/Vilanterol [Breo Ellipta 100-25 Mcg INH] 1 each IH DAILY 06/21/18 [History] Lidocaine 1 gm TP BID PRN 06/21/18 [History] Multivitamin [One Daily Essential] 1 each PO DAILY 06/21/18 [History] Rosuvastatin Calcium [Crestor] 10 mg PO DAILY 06/21/18 [History] Spironolactone [Aldactone] 50 mg PO DAILY 06/21/18 [History] glyBURIDE [GlyBURIDE] 5 mg PO DAILY@1200 06/21/18 [History] Allergy/AdvReac Type Severity Reaction Status Date / Time No Known Allergies Allergy Verified 12/22/17 11:12 - Meds/Allergy Pre-op Review Medications Reviewed: Yes Allergies Reviewed: Yes Beta Blockers on Current Med List: No Anesthesia Results - Labs 06/22/18 02:47 06/22/18 02:47 - Imaging EKG: report reviewed (Sinus rhythm Electronically Signed On 06-22-2018 3:56:06 EDT by Sherwin Yates) Additional studies: stress 05/04/18 EF 30%, stress positive for ischemia, there is a small sized re versible perfusion defect apex and apical lateral segment, medium defect inferior segment consistent with prior infarct ECHO 04/06/18 Impressions: LVEF 30%. Severe global LV systolic dysfunction. No LV apical thrombus visualized on this non-contrasted study. Mildly dilated left ventricle. Indeterminate LV diastolic function. RV is not well visualized. Mild mitral regurgitation. Unable to estimate RVSP due to suboptimal TR signal. Anesthesia Exam Vital Signs/O2 Sat, Most Current Temp Pulse Resp BP Pulse Ox 97.5 F L 98 20 128/79 95 06/22/18 07:52 06/22/18 07:52 06/22/18 10:53 06/22/18 07:52 06/22/18 10:53 Weight: 113kg NPO (# of Hours): >8 <Salomon Bain - Last Filed: 06/22/18 12:38> Date of Encounter: 06/22/18 - Past History Cardiac History: Other (no recent chest pain) Pulmonary History: Smoker (1 ppd), CHANTE Dx (Bipap unsure of settings) Other Medical History: Other (R adrenal mass, non hodgkins lymphoma in remission following chemo, BMI 37) Anesthesia Results - Labs 06/22/18 02:47 06/22/18 02:47 Anesthesia Exam - HEENT Pupil (Motor): Pupils equal Mallampati: II Teeth: Edentulous - LINE OUT MAN LOC: Oriented - Cardiac Rhythm: Regular Murmur: None - Pulmonary Respiratory Effort: Symmetrical (expiratory wheezing bilateral) Anesthesia Assess/Plan ASA Score: 4 Level of consciousness: Cooperative, Oriented Anesthetic Plan: General Monitoring Plan: Standard Monitors Recovery Plan: PACU
[2018-06-22] MEDS ORDERED: *HR* Promethazine 25 MG/ML VIAL IVP PRN ×2 (12:34→15:27)
[2018-06-22] MEDS ORDERED: *HR* HYDROmorphone (PF) 1 MG/ML SYRINGE IVP PRN ×2 (12:34→15:27)
[2018-06-22] MEDS ORDERED: *HR* Labetalol 20 MG/4 ML SYRINGE IVP PRN ×2 (12:34→15:27)
[2018-06-22] MEDS ORDERED: Albuterol 2.5 MG/3 ML NEBULIZER IH ONE (12:34)
[2018-06-22] MEDS ORDERED: Ondansetron 4 MG/2 ML VIAL IVP ONE ×2 (12:34→15:27)
[2018-06-22] MEDS ORDERED: *HR* OxyCODONE Immed Rel 5 MG TABLET PO PRN ×2 (12:34→15:27)
[2018-06-22] MEDS ORDERED: Albuterol 2.5 MG/3 ML NEBULIZER ONE (12:36)
[2018-06-22] MEDS ORDERED: *HR* Propofol 200 MG/20 ML VIAL IVP ONE (13:24)
[2018-06-22] MEDS ORDERED: Dexamethasone 4 MG/ML VIAL ONE (13:24)
[2018-06-22] MEDS ORDERED: *HR* FentaNYL (PF) 100 MCG/2 ML VIAL ONE ×2 (13:24→14:29)
[2018-06-22] MEDS ORDERED: Neostigmine Methylsulfate 3 MG/3 ML SYRINGE ONE (13:24)
[2018-06-22] MEDS ORDERED: Lidocaine -MPF 2% 2 ML VIAL ONE (13:24)
[2018-06-22] MEDS ORDERED: Ondansetron 4 MG/2 ML VIAL ONE (13:24)
[2018-06-22] MEDS ORDERED: *HR* Rocuronium Bromide 50 MG/5 ML VIAL ONE (13:24)
[2018-06-22] MEDS ORDERED: *HR* Succinylcholine 200 MG/10 ML VIAL IVP ONE (13:24)
[2018-06-22] MEDS ORDERED: *HR* PHENYLEPHRINE 1,000 MCG/10 ML SYRINGE IVP ONE ×2 (13:45→14:08)
--- NOTE | 2018-06-22 13:52 | Internal Med Progress Note ---
Hospitalist Progress Note - Encounter Date of Encounter: 06/22/18 Time of Encounter: 09:00 - Subjective Interval History: Patient was seen and examined at bedside currently states that his pain in his left groin has greatly improved. Patient is to undergo surgical I&D today of left groin-patient and verbalize understanding of treatment plan - Exam Vitals: Temp Pulse Resp BP Pulse Ox 97.9 F 85 16 119/81 96 06/22/18 12:07 06/22/18 12:07 06/22/18 12:40 06/22/18 12:07 06/22/18 12:40 Exam: Skin: Left groin with redness Eyes: Sclera is white. There is no discharge from eyes. ENMT: Oral/pharyngeal mucosa is normal in appearance. There is no discharge from nose or ears. Respiratory: Expiratory wheezes. CV: Heart is regular with no gallop or murmur. GI: Abdomen is flat and soft with no palpable mass or visceromegaly. : There is no tenderness in patient's flanks bilaterally. Neuro exam: He has good strength in upper and lower extremities. He has normal eye movements. Psychiatric: He has normal affect. His thought process is appropriate to the situation. - Assessment and Plan (1) DVT prophylaxis Current Visit: Yes Status: Acute Assessment and Plan: Heparin sc (2) Acute exacerbation of chronic obstructive airways disease Current Visit: Yes Status: Acute Assessment and Plan: Comes in with coughing with yellow phlegm and wheezing for about a week Duonebs every 4 hours Continue with IV steroids will increase to 60 mg IV every 8 hours Sputum culture (3) Chronic systolic (congestive) heart failure Current Visit: Yes Status: Acute Assessment and Plan: Acute worsening of chronic systolic CHF Continue with IV Lasix Monitor intake output daily weights Fluid restriction 1500 mL (4) Non Hodgkin's lymphoma Current Visit: Yes Status: Acute Assessment and Plan: see #1. Oncology consulted (5) Diabetes mellitus Current Visit: Yes Status: Acute Assessment and Plan: Continue insulin and monitor fingersticks-he has had elevated blood glucose most likely secondary to steroid use we will increase basal to 15 units (6) Cellulitis of left groin Current Visit: Yes Status: Acute Assessment and Plan: Pt comes in with redness of left groin of [address] abdomen shows enlarging centrally necrotic left inguinal lymph node and possible abscess Pt has been on chemotherapy previously for non hodgkns lymphoma Will start on zosyn, obtain cultures. Surgery and oncology consulted and appreciate recs - seen by surgery he will go for I/D today - Time Spent with Patient Total time spent is greater than 50% in coordination of care (as documented) at patient's floor/unit and/or counseling patient: Internal Medicine: Result - Labs CBC & Chem 7: 06/22/18 02:47 06/22/18 02:47 Labs: Short CBC 06/22/18 Range/Units 02:47 WBC 15.3 H (4.3-11.1) K/mcL Hgb 13.0 (12.9-16.9) g/dL Hct 38.6 (37.5-50.1) % Plt Count 176 (140-400) K/mcL Neutrophils # 13.5 H (1.6-8.9) K/mcL BMP 06/22/18 02:47 Sodium 134 L Potassium 4.2 Chloride 99 Carbon Dioxide 26 BUN 23 Creatinine 0.98 Glucose 422 H Calcium 9.7 Consult Discharge Plan - Plan Referrals: Lety Awan APN [Primary Care Provider] - 06/30/18 9:20 am (4) Non Hodgkin's lymphoma Qualifiers: Non-Hodgkin lymphoma type: unspecified type Lymphoma site: inguinal Qualified Code(s): C85.95 - Non-Hodgkin lymphoma, unspecified, lymph nodes of inguinal region and lower limb (5) Diabetes mellitus Qualifiers: Diabetes mellitus type: type 2 Diabetes mellitus ferry terminal agent insulin use: with nursing home use Diabetes mellitus complication status: without complication Qualified Code(s): E11.9 - Type 2 diabetes mellitus without complications; Z79.4 - prison (current) use of insulin
[2018-06-22] MEDS ORDERED: CeFAZolin Syr 2,000MG/20 ML 2,000 MG/20 ML SYRINGE IVPB ONE (14:14)
--- NOTE | 2018-06-22 14:58 | Operative Note ---
Date of procedure: 06/22/18 Pre-op diagnosis: Left inguinal abscess Post-op diagnosis: other (Left inguinal lymphocele) Procedure: Resection of left inguinal lymphocele Anesthesia: LISSAA Surgeon: Luis Manuel Herrera Was there an temporary office assistant present: No Estimated blood loss (cc): 5 Specimen: Left inguinal lymphocele Condition: stable Disposition: PACU Procedure in Detail: After informed consent the patient was taken to the major operating suite placed in the supine position and given adequate general anesthetic. Prepped and draped in sterile fashion utilizing ChloraPrep standard draping techniques. Timeout was taken and the patient was identified. The lateralizing aga was identified. Made a curvilinear incision overlying the palpable mass. I dissected down to the palpable Mass, this did not appear to be abscess. The mass involved the lateral aspect of the inguinal tissue lateral to the femoral artery and overlying the femoral nerve the fluid-filled mass was completely encased in chronic inflammatory tissue. The patient previously had a biopsy in this area that demonstrated lymphoma. There were 2 small areas of rockhard tissue at the proximal and distal end of the fluid-filled sac. In my opinion, this represents an area of necrosis of the lymphoma followed by lymphocele. The possibility of recurrence of the wall of the lymphocele is of concern. I decided to completely resect the lymphocele intact. Over 45 minute period of time I made a careful dissection dissecting the femoral nerve off the backside of the lymphocele and completely resecting the lymphocele from surrounding tissue intact area or trocar was used for hemostasis. At the end of the dissection no firm or scar tissue remained. There was no other palpable adenopathy. I placed #10 Tian-Pina drain and closed the wound in 2 layers using interrupted 2-0 Vicryl on the subcutaneous layers and running 4-0 Vicryl on the subcuticular layer. He tolerated the procedure very well
[2018-06-22] MEDS ORDERED: *HR* OxyCODONE/APAP 10/325 TABLET PO PRN (15:27)
[2018-06-22] MEDS ORDERED: D5% in Water 1,000 ML IVC PRN (15:27)
[2018-06-22] MEDS ORDERED: Dextrose Gel 15 GM/37.5 ML TUBE PO PRN ×2 (15:27)
[2018-06-22] MEDS ORDERED: Naloxone 0.4 MG/ML INJ IVP PRN (15:27)
[2018-06-22] MEDS ORDERED: *HR* Dextrose 50 % in Water (Syg) 50 ML SYRINGE IVP PRN (15:27)
[2018-06-22] MEDS ORDERED: methylPREDNISolone 125 MG/2 ML VIAL IVP SCH (16:00)
[2018-06-22] MEDS: methylPREDNISolone 125 MG/2 ML VIAL IVP SCH (16:48)
[2018-06-22] MEDS: traMADol 50 MG TABLET PO PRN (19:29)
[2018-06-22] MEDS ORDERED: Insulin DETEMIR 100 UNIT/ML X5UNITS SQ SCH (21:00)
--- NOTE | 2018-06-22 22:00 | Anesthesia Evaluation Post Op ---
Date of Encounter: 06/22/18 Time of Encounter: 15:26 - Discharge PostOp Status: Transfer Patient to floor (Patient's vital signs have been reviewed. Patient is stable postoperatively and has adequately recovered from anesthesia. Patient is determined to have stable airway patency and respiratory function including respiratory rate and oxygen saturation. Patient has a stable heart rate, blood pressure and adequate hydration. Patients mental status is acceptable. Patients temperature is appropriate. Pain and nausea are adequately controlled.)
[2018-06-23] MEDS: methylPREDNISolone 125 MG/2 ML VIAL IVP SCH ×2 (00:24→09:20)
[2018-06-23] MEDS: Piperacillin/Tazobactam 3.375 GM in 0.9 % Sodium Chloride Mini Bag 100 ML IVPB SCH ×4 (00:24→23:55)
[2018-06-23] MEDS: Ipratropium/Albuterol Neb 3 ML IH SCH ×6 (03:59→23:04)
[2018-06-23 06:11] LABS: BUN/Creatinine Ratio 30 (6-26); Blood Urea Nitrogen 35 mg/dL (8-23); Calcium 8.8 mg/dL (8.6-10.3); Carbon Dioxide 26 mEq/L (23-29); Chloride 99 mEq/L (98-107); Glucose 364 mg/dL (70-105); Osmolality,Calculated 307 (280-300); Potassium 3.8 mEq/L (3.5-5.1); Sodium 137 mEq/L (136-145); eGFR For Non-African Americans > 60 (> 60)
[2018-06-23 06:57] LABS: Basophils % 0.1 %; Hematocrit 39.9 % (37.5-50.1); Hemoglobin 13.2 g/dL (12.9-16.9); Immature Granulocytes % 2.2 % (0-4); Lymphocytes # 1.1 K/mcL (0.6-4.6); Lymphocytes % 4.6 %; Mean Corpuscular HGB Conc 33.1 g/dL (31.6-35.5); Mean Corpuscular Hemoglobin 30.8 pg (28.0-33.3); Mean Platelet Volume 10.9 fL (9.4-12.4); Monocytes # 1.2 K/mcL (0.0-1.3); Monocytes % 4.9 %; Neutrophils # 20.9 K/mcL (1.6-8.9); Platelet Count 225 K/mcL (140-400); Red Blood Count 4.29 M/mcL (4.19-5.50); Red Cell Distribution Width 16.3 % (11.5-14.5); Segmented Neutrophils % 88.2 %
[2018-06-23] MEDS: Budesonide/Formoterol 160/4.5 1 PUFF INH IH SCH ×2 (07:24→19:51)
--- NOTE | 2018-06-23 08:24 | AcuteCareSurgery Progress Note ---
<Milagros Johnson N - Last Filed: 06/23/18 08:21> Date of Encounter: 06/23/18 Time of Encounter: 07:30 - Assessment and Plan (1) Lymphocele Current Visit: Yes Status: Acute Intraoperative findings suggest that the patient had a necrotic lymph node and lymphocele rather than abscess The mass did not grossly appear to be tumor nor did it appear to be infectious Suspect that the lymphocele is not directly related to the overlying erythema/cellulitis Patient is okay to discharge from a surgical standpoint, but we will continue to follow while he remains in the hospital Patient to follow-up with outpatient surgery after discharge (2) Adrenal mass Current Visit: Yes Status: Acute Patient to follow-up with outpatient general surgery for evaluation of the right adrenal mass (3) Non Hodgkin's lymphoma Current Visit: Yes Status: Acute Qualifiers: Non-Hodgkin lymphoma type: unspecified type Lymphoma site: inguinal Qualified Code(s): C85.95 - Non-Hodgkin lymphoma, unspecified, lymph nodes of inguinal region and lower limb Subjective Narrative: Patient seen and examined at bedside this morning. He is POD #1 from resection of left inguinal lymphocele. Intraoperative findings may suggest that there was an area of necrosis of lymphoma which is followed by lymphocele. Patient reports output and his LISSETTE tube. Motor and sensory function of the left lower extremity is intact. His pain is well controlled. He has no complaints. Objective Vital Signs - Last 8 Hours Temp Pulse Resp BP Pulse Ox 06/23/18 07:46 97.8 F 88 17 129/81 93 06/23/18 07:27 18 93 06/23/18 04:00 18 93 06/23/18 03:24 97.8 F 94 17 118/72 94 Intake and Output 06/22/18 06/23/18 06/23/18 23:59 07:59 15:59 Intake Total 340 / 560 100 / 100 Output Total 0 / 0 510 / 510 Balance 340 / 560 -410 / -410 Intake: IV Fluids 100 / 320 100 / 100 Zosyn 3.375 GM In 0.9 % Sodium 100 / 100 100 / 100 Chloride (Mini-Bag +) 100 ML @ 25 mls/hr IVPB Q8HR [facility] Rx#: [id number] Oral 240 / 240 Output: Urine 0 / 0 500 / 500 Wound Drainage 0 / 0 10 / 10 Left Groin 0 / 0 10 / 10 Other: # Bowel Movements 0 Weight 114.5 kg Blood Glucose* 402 [id number] Patient Weight 06/23/18 23:59 Weight 114.5 kg - General physical appearance well developed, well nourished - Eyes PERRL, normal ocular movement - ENT normal pinna, normal nares - Neck Neck exam: trachea midline, no venous distension - Respiratory normal expansion, normal respiratory effort - Cardiovascular Cardiovascular exam: Present: RRR - Abdomen Abdomen: Present: soft, non tender Additional Comments: Tian-Pina drain in the left inguinal region - Incision Incision: Present: clean and dry, approximated - Integumentary no rash - Labs 06/23/18 06:34 06/23/18 04:45 Diabetes panel 06/23/18 Range/Units 04:45 Sodium 137 (136-145) mEq/L Potassium 3.8 (3.5-5.1) mEq/L Chloride 99 (98-107) mEq/L Carbon Dioxide 26 (23-29) mEq/L BUN 35 H (8-23) mg/dL Creatinine 1.15 (0.70-1.30) mg/dL Glucose 364 H (70-105) mg/dL Calcium 8.8 (8.6-10.3) mg/dL Calcium panel 06/23/18 Range/Units 04:45 Calcium 8.8 (8.6-10.3) mg/dL Pituitary panel 06/23/18 Range/Units 04:45 Sodium 137 (136-145) mEq/L Potassium 3.8 (3.5-5.1) mEq/L Chloride 99 (98-107) mEq/L Carbon Dioxide 26 (23-29) mEq/L BUN 35 H (8-23) mg/dL Creatinine 1.15 (0.70-1.30) mg/dL Glucose 364 H (70-105) mg/dL Calcium 8.8 (8.6-10.3) mg/dL Adrenal panel 06/23/18 Range/Units 04:45 Sodium 137 (136-145) mEq/L Potassium 3.8 (3.5-5.1) mEq/L Chloride 99 (98-107) mEq/L Carbon Dioxide 26 (23-29) mEq/L BUN 35 H (8-23) mg/dL Creatinine 1.15 (0.70-1.30) mg/dL Glucose 364 H (70-105) mg/dL Calcium 8.8 (8.6-10.3) mg/dL Consult Discharge Plan - Plan Referrals: Lety Awan APN [Primary Care Provider] - 06/30/18 9:20 am <Emeterio Rosa - Last Filed: 06/23/18 11:25> Date of Encounter: 06/23/18 Objective Vital Signs - Last 8 Hours Temp Pulse Resp BP Pulse Ox 06/23/18 07:46 97.8 F 88 17 129/81 93 06/23/18 07:27 18 93 06/23/18 04:00 18 93 Intake and Output 06/22/18 06/23/18 06/23/18 23:59 07:59 15:59 Intake Total 340 / 560 100 / 340 240 / 340 Output Total 0 / 0 510 / 510 Balance 340 / 560 -410 / -170 240 / -170 Intake: IV Fluids 100 / 320 100 / 100 Zosyn 3.375 GM In 0.9 % Sodium 100 / 100 100 / 100 Chloride (Mini-Bag +) 100 ML @ 25 mls/hr IVPB Q8HR [facility] Rx#: [id number] Oral 240 / 240 240 / 240 Output: Urine 0 / 0 500 / 500 Wound Drainage 0 / 0 10 / 10 Left Groin 0 / 0 10 / 10 Other: Meal Breakfast Percent of Meal Consumed 100% # Bowel Movements 0 Weight 114.5 kg Blood Glucose* 402 378 Patient Weight 06/23/18 23:59 Weight 114.5 kg - Labs 06/23/18 06:34 06/23/18 04:45 Diabetes panel 06/23/18 Range/Units 04:45 Sodium 137 (136-145) mEq/L Potassium 3.8 (3.5-5.1) mEq/L Chloride 99 (98-107) mEq/L Carbon Dioxide 26 (23-29) mEq/L BUN 35 H (8-23) mg/dL Creatinine 1.15 (0.70-1.30) mg/dL Glucose 364 H (70-105) mg/dL Calcium 8.8 (8.6-10.3) mg/dL Calcium panel 06/23/18 Range/Units 04:45 Calcium 8.8 (8.6-10.3) mg/dL Pituitary panel 06/23/18 Range/Units 04:45 Sodium 137 (136-145) mEq/L Potassium 3.8 (3.5-5.1) mEq/L Chloride 99 (98-107) mEq/L Carbon Dioxide 26 (23-29) mEq/L BUN 35 H (8-23) mg/dL Creatinine 1.15 (0.70-1.30) mg/dL Glucose 364 H (70-105) mg/dL Calcium 8.8 (8.6-10.3) mg/dL Adrenal panel 06/23/18 Range/Units 04:45 Sodium 137 (136-145) mEq/L Potassium 3.8 (3.5-5.1) mEq/L Chloride 99 (98-107) mEq/L Carbon Dioxide 26 (23-29) mEq/L BUN 35 H (8-23) mg/dL Creatinine 1.15 (0.70-1.30) mg/dL Glucose 364 H (70-105) mg/dL Calcium 8.8 (8.6-10.3) mg/dL - Attending Attestation patient seen and examined. i have reviewed all labs, imaging, and notes pertinent to this case. i have discussed the case in detail with the resident. i agree with the above assessment and plan.
[2018-06-23] MEDS: Insulin LISPRO 300 UNITS/3 ML VIAL SQ SCH ×5 (08:58→18:28)
[2018-06-23] MEDS: Insulin DETEMIR 100 UNIT/ML X5UNITS SQ SCH ×2 (08:59→21:28)
[2018-06-23] MEDS ORDERED: predniSONE 20 MG TABLET PO SCH (09:00)
[2018-06-23] MEDS ORDERED: (Tiotropium Bromide [Spiriva Respimat] 2 PUFF) IH SCH (09:00)
[2018-06-23] MEDS: Gabapentin 300 MG CAPSULE PO SCH ×3 (09:00→21:28)
[2018-06-23] MEDS ORDERED: Furosemide 40 MG TABLET PO SCH (09:00)
[2018-06-23] MEDS: Aspirin Enteric Coated 81 MG Tablet PO SCH (09:01)
[2018-06-23] MEDS: traMADol 50 MG TABLET PO PRN (09:01)
[2018-06-23] MEDS: Furosemide 40 MG/4 ML VIAL IVP SCH (09:19)
[2018-06-23] MEDS: Tiotropium 18 MCG inhalation IH SCH (11:38)
--- NOTE | 2018-06-23 12:47 | Internal Med Progress Note ---
Hospitalist Progress Note - Encounter Date of Encounter: 06/23/18 Time of Encounter: 12:42 - Subjective Interval History: Pt seen and examined in the room. Reported improved redness and swelling of left leg. No fever, chills, or night sweats. Chronic smoking and currently smoking, no plan to quit. - Exam Vitals: Temp Pulse Resp BP Pulse Ox 97.6 F 100 17 137/84 91 06/23/18 11:53 06/23/18 11:53 06/23/18 11:53 06/23/18 11:53 06/23/18 11:53 Exam: Skin: Left groin with redness Eyes: Sclera is white. There is no discharge from eyes. ENMT: Oral/pharyngeal mucosa is normal in appearance. There is no discharge from nose or ears. Respiratory: Expiratory wheezes. CV: Heart is regular with no gallop or murmur. GI: Abdomen is flat and soft with no palpable mass or visceromegaly. : There is no tenderness in patient's flanks bilaterally. Neuro exam: He has good strength in upper and lower extremities. He has normal eye movements. Psychiatric: He has normal affect. His thought process is appropriate to the situation. - Assessment and Plan (1) Cellulitis of left groin Current Visit: Yes Status: Acute Assessment and Plan: 06/22 Pt comes in with redness of left groin of [address] abdomen shows enlarging centrally necrotic left inguinal lymph node and possible abscess Pt has been on chemotherapy previously for non hodgkns lymphoma Will start on zosyn, obtain cultures. Surgery and oncology consulted and appreciate recs - seen by surgery he will go for I/D today. 06/23 Had left groin mass incision by surgery on 06/23. per surgery, it seems lymphocele, does not seem infection or necrotic lymph no de. Left leg swelling and redness have improved. Blood cx no growth so for, plan to dc IV abx tomorrow. (2) Acute exacerbation of chronic obstructive airways disease Current Visit: Yes Status: Acute Assessment and Plan: Sputum has no growth. symptoms improved with IV steroid and bronchodilators. IV steroid changed to po prednisone. continue monitoring. (3) Chronic systolic (congestive) heart failure Current Visit: Yes Status: Acute Assessment and Plan: euvolemic on physical, leg swelling is likely caused by lymph blockage, improved after surgery. DC IV lasix, continue aldactone. (4) Non Hodgkin's lymphoma Current Visit: Yes Status: Acute Assessment and Plan: see #1. Oncology consulted (5) Diabetes mellitus Current Visit: Yes Status: Acute Assessment and Plan: BG high after IV steroid started. Bolus insulin started with meals. basal insulin adjusted. Continue monitoring. (6) DVT prophylaxis Current Visit: Yes Status: Acute Assessment and Plan: Heparin sc - Time Spent with Patient Total time spent is greater than 50% in coordination of care (as documented) at patient's floor/unit and/or counseling patient: Greater than 35 minutes Plan of Care Discussed with: patient Internal Medicine: Result - Labs CBC & Chem 7: 06/23/18 06:34 06/23/18 04:45 Labs: Short CBC 06/23/18 Range/Units 06:34 WBC 23.7 H D (4.3-11.1) K/mcL Hgb 13.2 (12.9-16.9) g/dL Hct 39.9 (37.5-50.1) % Plt Count 225 (140-400) K/mcL Neutrophils # 20.9 H (1.6-8.9) K/mcL BMP 06/23/18 04:45 Sodium 137 Potassium 3.8 Chloride 99 Carbon Dioxide 26 BUN 35 H Creatinine 1.15 Glucose 364 H Calcium 8.8 Consult Discharge Plan - Plan Referrals: Lety Awan APN [Primary Care Provider] - 06/30/18 9:20 am (4) Non Hodgkin's lymphoma Qualifiers: Non-Hodgkin lymphoma type: unspecified type Lymphoma site: inguinal Qualified Code(s): C85.95 - Non-Hodgkin lymphoma, unspecified, lymph nodes of inguinal region and lower limb (5) Diabetes mellitus Qualifiers: Diabetes mellitus type: type 2 Diabetes mellitus skilled nursing insulin use: with terminal gauger use Diabetes mellitus complication status: without complication Qualified Code(s): E11.9 - Type 2 diabetes mellitus without complications; Z79.4 - superintendent container terminal (current) use of insulin
--- NOTE | 2018-06-23 13:55 | Oncology Inp Consult Note ---
<Nini Jean-Baptiste - Last Filed: 06/23/18 13:50> Date of Encounter: 06/23/18 Time of Encounter: 12:20 Assessment and Plan (1) Abscess of groin, left Status: Acute Assessment and plan: s/p 06/22/18 procedure. Lymph node sent for pathology. Plan: Continue antibiotic: Zosyn per primary team. Await pathology of LN. 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 The tumor was CD30, CD15 positive. It was PAX5 positive of variable intensity. CD45, CD10, CD3, ALK, AE1/AE3 were negative. CD20 was weakly positive in a subset of cells. Prior therapy: 1. ABVD initiated 12/15/16. Bleomycin discontinued secondary to SOB/cough 03/16/17. 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 Brentuximab initiated 03/30/17 as a substitute for bleomycin. Course completed 06/01/2017 Treatment intent: Curative Due for imaging on 06/28/18 for adrenal mass. - Data of Consult Patient: known to practice within the last 3 years Requesting Physician: Allan Burdick Primary Care Provider: Lety Awan APN - Consult Narrative Reason for consult: hx of lymphoma, new inguinal edema/pain History of present illness: Mr. Wilkes, 67-year-old male with a history of Hodgkin's lymphoma, presented to the emergency room for increased pain and edema to his left groin. He notes that he was due for a PET/CT scan on June 28, and was planning to complete the scan and discuss the pain and edema with Dr. Mas at his follow-up appointment. He notes that the pain started on Thursday but increased over the weekend and felt that he needed to go to the emergency room. Yesterday afternoon, 06/22/18, the patient had a surgical removal of the left inguinal lymph node and drainage. He currently has a LISSETTE drain to the site with minimal serosanguineous drainage. The site is covered with a gauze dressing and it is clean, dry, and intact. Mr. Wilkes notes that the pain in his left groin has improved since the procedure. Discussed that the lymph node was sent to pathology for testing; however, the results are pending and may take a few days to result. He voices understanding, we will plan to follow-up with Dr. Mas as an outpatient. He continues on Zosyn. 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 The tumor was CD30, CD15 positive. It was PAX5 positive of variable intensity. CD45, CD10, CD3, ALK, AE1/AE3 were negative. CD20 was weakly positive in a subset of cells. Prior therapy: 1. ABVD initiated 12/15/16. Bleomycin discontinued secondary to SOB/cough 03/16/17. 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 Brentuximab initiated 03/30/17 as a substitute for bleomycin. Course completed 06/01/2017 Treatment intent: Curative Pertinent medical history: CHF COPD Sleep apnea Past Med Surg Social Fam HX - Past Medical History Medical history: arthritis, cancer, CHF, COPD, coronary artery disease, GERD, hypertension, myocardial infarction Additional medical history: lumbar disease, non-hodgkins Psychiatric history: no psych history - Past Surgical History Surgical History: angioplasty/stent, knee replacement, other Additional surgical history: cardiac cath x4, Lymphoma - Social History Smoking Status: Current every day smoker Smokeless Tobacco Status: No Alcohol use: none Drug use: none - Family History Mother Living Status: Hx Family Cancer: Yes (lung) Father Living Status: Hx Family Cardiac Disorders: Yes ([place]) Medications and Allergies Tramadol HCl [Ultram] 50 mg PO QID PRN 11/18/16 [History] Aspirin [Lo-Dose Aspirin EC] 81 mg PO DAILY 04/07/17 [History] Albuterol Sulfate [Albuterol Inhaler] 2 puff IH Q4HR PRN 05/21/18 [History] Cyanocobalamin/Folic AC/Vit B6 [Folbee Tablet] 1 tab PO DAILY 05/21/18 [History] Furosemide [Lasix] 40 mg PO DAILY PRN 05/21/18 [History] Gabapentin [Neurontin] 900 mg PO TID 05/21/18 [History] Losartan Potassium 100 mg PO DAILY 05/21/18 [History] Potassium Chloride [K-Tab ER] 20 meq PO DAILY PRN 05/21/18 [History] Tiotropium [place] [Spiriva Respimat] 2 puff IH DAILY 05/21/18 [History] Insulin DETEMIR [Levemir Flextouch] 10 unit SQ BID #5 insuln.pen 05/24/18 [Rx] metFORMIN [Glucophage] 500 mg PO BIDWM #60 tablet 05/24/18 [Rx] Albuterol Neb [Proventil Neb] 2.5 mg IH Q4HR PRN 06/21/18 [History] Carvedilol [Coreg] 12.5 mg PO DAILY@0800 06/21/18 [History] Fluticasone/Vilanterol [Breo Ellipta 100-25 Mcg INH] 1 each IH DAILY 06/21/18 [History] Lidocaine 1 gm TP BID PRN 06/21/18 [History] Multivitamin [One Daily Essential] 1 each PO DAILY 06/21/18 [History] Rosuvastatin Calcium [Crestor] 10 mg PO DAILY 06/21/18 [History] Spironolactone [Aldactone] 50 mg PO DAILY 06/21/18 [History] glyBURIDE [GlyBURIDE] 5 mg PO DAILY@1200 06/21/18 [History] Allergy/AdvReac Type Severity Reaction Status Date / Time No Known Allergies Allergy Verified 12/22/17 11:12 Constitutional: Absent: anorexia, chills, fever(s), night sweats, weight loss Cardiovascular: Present: chest pain Respiratory: Present: cough, dyspnea on exertion, wheezing Gastrointestinal: Absent: abdominal pain Integumentary: Present: skin pain, sores, swelling Neurological: Present: numbness, tingling Additional comments: bilateral feet, and bilateral thumbs Hematologic/Lymphatic: Present: lymphadenopathy Additional comments: left inguinal LN s/p excision 06/22/18 Oncology - Exam - Additional findings Additional findings: General: Alert and oriented, well appearing. Mental Status: Affect appropriate for circumstances Skin: No rashes or petechiae. L incision covered with gauze/LISSETTE intact: minimal serosanguineous drainage. Lymph nodes: No cervical, supraclavicular, axillary, or inguinal adenopathy. Lungs: Clear to auscultation and percussion bilaterally. Cardiovascular: Regular rate and rhythm. No gallops, murmurs, or rubs. Abdomen: Soft, nontender; BS active. Extremities: No edema. No calf swelling or tenderness. No joint deformity. Neurologic: Alert, cranial nerves II-XII intact; no focal weakness or sensory abnormalities. Consult Discharge Plan - Plan Referrals: Lety Awan APN [Primary Care Provider] - 06/30/18 9:20 am <Serge Demarcoapathy S - Last Filed: 06/23/18 18:10> Date of Encounter: 06/23/18 - Data of Consult Requesting Physician: Allan Burdick Primary Care Provider: Lety Awan APN Inpatient Charges Provider: Dr. Geoff Demarco Consult - Inpatient: [id number] - Attending Attestation I examined this patient and my medical decision-making was reviewed with the Advanced Practice Nurse. I agree with the documented findings, disposition and treatment plan as described except to the extent set forth below. 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 The tumor was CD30, CD15 positive. It was PAX5 positive of variable intensity. CD45, CD10, CD3, ALK, AE1/AE3 were negative. CD20 was weakly positive in a subset of cells. Prior therapy: 1. ABVD initiated 12/15/16. Bleomycin discontinued secondary to SOB/cough 03/16/17. 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 Brentuximab initiated 03/30/17 as a substitute for bleomycin. Course completed 06/01/2017 He is been in remission since then 2. Enlarging centrally low attenuating left inguinal lesion measuring 4 x 3.1 x 6.3 cm in size with surrounding inflammatory changes. Post incision and drainage by Dr. Herrera. During that procedure he he noticed lymph node with some hard areas which was biopsied and results pending. He had CT angiogram chest on 06/23/[address] abdomen and pelvis 06/22/2018 which showed Large right adrenal mass measuring approximately 8 x 6.5 x 7.7 cm in size. Given lack of FDG uptake on prior PET-CT as well as long-term stability this still likely represents adrenal adenoma. Repeat PET scan has been scheduled Will follow the pathology from the inguinal lymph node as an outpatient and appropriate treatment recommendation after that. We will make a follow-up appointment Dr. Mas
[2018-06-24] MEDS: Ipratropium/Albuterol Neb 3 ML IH SCH ×3 (03:50→11:01)
[2018-06-24 05:52] LABS: Basophils # 0.1 K/mcL (0.0-0.2); Basophils % 0.5 %; Hematocrit 38.1 % (37.5-50.1); Hemoglobin 12.6 g/dL (12.9-16.9); Immature Granulocytes % 4.5 % (0-4); Lymphocytes # 1.5 K/mcL (0.6-4.6); Mean Corpuscular HGB Conc 33.1 g/dL (31.6-35.5); Mean Corpuscular Hemoglobin 31.2 pg (28.0-33.3); Mean Corpuscular Volume 94.3 fL (83.0-100.0); Mean Platelet Volume 10.9 fL (9.4-12.4); Monocytes % 6.6 %; Neutrophils # 11.6 K/mcL (1.6-8.9); Platelet Count 201 K/mcL (140-400); Red Blood Count 4.04 M/mcL (4.19-5.50); Red Cell Distribution Width 16.2 % (11.5-14.5); Segmented Neutrophils % 78.4 %
[2018-06-24 06:11] LABS: BUN/Creatinine Ratio 34 (6-26); Blood Urea Nitrogen 33 mg/dL (8-23); Calcium 8.7 mg/dL (8.6-10.3); Carbon Dioxide 26 mEq/L (23-29); Chloride 101 mEq/L (98-107); Glucose 360 mg/dL (70-105); Osmolality,Calculated 306 (280-300); Potassium 3.8 mEq/L (3.5-5.1); Sodium 137 mEq/L (136-145); eGFR For Non-African Americans > 60 (> 60)
[2018-06-24 07:11] VITALS: BP 129/75
[2018-06-24] MEDS: Tiotropium 18 MCG inhalation IH SCH (07:18)
[2018-06-24] MEDS: Budesonide/Formoterol 160/4.5 1 PUFF INH IH SCH (07:18)
[2018-06-24] MEDS: Aspirin Enteric Coated 81 MG Tablet PO SCH (08:21)
[2018-06-24] MEDS: traMADol 50 MG TABLET PO PRN (08:21)
[2018-06-24] MEDS: Gabapentin 300 MG CAPSULE PO SCH (08:22)
[2018-06-24] MEDS: Insulin LISPRO 300 UNITS/3 ML VIAL SQ SCH ×2 (08:22)
[2018-06-24] MEDS: Insulin DETEMIR 100 UNIT/ML X5UNITS SQ SCH (08:22)
--- NOTE | 2018-06-24 08:31 | AcuteCareSurgery Progress Note ---
<Yajaira Roblero - Last Filed: 06/24/18 08:29> Date of Encounter: 06/24/18 Time of Encounter: 08:29 - Assessment and Plan (1) Lymphocele Status: Acute Date of procedure: 06/22/18 Pre-op diagnosis: Left inguinal abscess Post-op diagnosis: other (Left inguinal lymphocele) Procedure: Resection of left inguinal lymphocele Anesthesia: GETA Surgeon: Luis Manuel Herrera POD #2 as above. Pathology remains pending. He has serous output in his LISSETTE. He has no complaints and he would like to go home today. Advise patient dispo the per the primary team and patient stated understanding. He is okay to discharge from a surgical standpoint. He will need home healthcare for assistance with LISSETTE drain management. A consult has been placed. See discharge plan for orders related to LISSETTE care. Surgery will sign off at this time. Thank you for allowing us to participate in Mr. Wilkes's care. Please call or reconsult if any further questions or needs arise. Subjective Patient reports: no new complaints, pain is less, tolerating a regular diet, voiding w/o difficulty, afebrile Narrative: states issues with LISSETTE drain or incision Objective Vital Signs - Last 8 Hours Temp Pulse Resp BP Pulse Ox 06/24/18 07:17 20 91 06/24/18 07:10 97.5 F L 86 18 129/75 96 06/24/18 03:51 20 94 06/24/18 02:33 97.7 F 84 18 119/78 95 Intake and Output 06/23/18 06/24/18 06/24/18 23:59 07:59 15:59 Intake Total 100 / 540 100 / 100 Balance 100 / 30 100 / 100 Intake: IV Fluids 100 / 300 100 / 100 Zosyn 3.375 GM In 0.9 % Sodium 100 / 300 100 / 100 Chloride (Mini-Bag +) 100 ML @ 25 mls/hr IVPB Q8HR [facility] Rx#: [id number] Other: Weight 115.4 kg Blood Glucose* 375 307 Patient Weight 06/24/18 23:59 Weight 115.4 kg - General physical appearance no distress - ENT atraumatic, normocephalic - Respiratory other (On OxiMask for RT treatment) - Abdomen Abdomen: Present: bowel sounds present, soft, non tender - Incision Incision: Present: clean and dry, intact, serous (Drainage per LISSETTE) - Integumentary no rash - Neurologic normal sensation - Musculoskeletal normal posture - Psychiatric oriented to time, oriented to person, oriented to place, speech is normal, memory intact - Labs 06/24/18 05:01 06/24/18 05:01 Diabetes panel 06/24/18 Range/Units 05:01 Sodium 137 (136-145) mEq/L Potassium 3.8 (3.5-5.1) mEq/L Chloride 101 (98-107) mEq/L Carbon Dioxide 26 (23-29) mEq/L BUN 33 H (8-23) mg/dL Creatinine 0.97 (0.70-1.30) mg/dL Glucose 360 H (70-105) mg/dL Calcium 8.7 (8.6-10.3) mg/dL Calcium panel 06/24/18 Range/Units 05:01 Calcium 8.7 (8.6-10.3) mg/dL Pituitary panel 06/24/18 Range/Units 05:01 Sodium 137 (136-145) mEq/L Potassium 3.8 (3.5-5.1) mEq/L Chloride 101 (98-107) mEq/L Carbon Dioxide 26 (23-29) mEq/L BUN 33 H (8-23) mg/dL Creatinine 0.97 (0.70-1.30) mg/dL Glucose 360 H (70-105) mg/dL Calcium 8.7 (8.6-10.3) mg/dL Adrenal panel 06/24/18 Range/Units 05:01 Sodium 137 (136-145) mEq/L Potassium 3.8 (3.5-5.1) mEq/L Chloride 101 (98-107) mEq/L Carbon Dioxide 26 (23-29) mEq/L BUN 33 H (8-23) mg/dL Creatinine 0.97 (0.70-1.30) mg/dL Glucose 360 H (70-105) mg/dL Calcium 8.7 (8.6-10.3) mg/dL Consult Discharge Plan - Plan Instructions: Cephalexin (By mouth), Tramadol (By mouth), Tian-Pina Drain Care (DC), Chronic Obstructive Pulmonary Disease (DC) Additional Instructions: Daily LISSETTE Drain Care: 1. Remove dressings. Shower with antibacterial soap. 2. Do not let the LISSETTE drain dangle from your body. Use the safety pin to secure to your clothing. Secure the LISSETTE to a lanyard or other type of long necklace when you shower. 3. Replace drain gauze and taped to secure. 4. Record the output from your LISSETTE bulb (at least once daily) on the form provided and bring this with you to your follow-up appointment. 5. Keep the LISSETTE drain to suction (squeeze the bulb and replace the cap while squeezing). 6. Strip the lines twice daily (hold onto the line as close to the body as you can, then with the other hand push the contents of the line into the LISSETTE bulb). Referrals: Lety Awan APN [Primary Care Provider] - 06/30/18 9:20 am Alex Linton [Partnered Physician] - 06/29/18 8:45 am Prescriptions: Cephalexin [Keflex] 750 mg PO BID #10 capsule Tramadol HCl [Ultram] 50 mg PO QID PRN 3 Days #12 tablet PRN Reason: Mild Pain <Luis Manuel Herrera T - Last Filed: 06/24/18 13:40> Date of Encounter: 06/24/18 Objective Vital Signs - Last 8 Hours Temp Pulse Resp BP Pulse Ox 06/24/18 07:17 20 91 06/24/18 07:10 97.5 F L 86 18 129/75 96 Intake and Output 06/23/18 06/24/18 06/24/18 23:59 07:59 15:59 Intake Total 100 / 540 100 / 340 240 / 340 Balance 100 / 30 100 / 340 240 / 340 Intake: IV Fluids 100 / 300 100 / 100 Zosyn 3.375 GM In 0.9 % Sodium 100 / 300 100 / 100 Chloride (Mini-Bag +) 100 ML @ 25 mls/hr IVPB Q8HR [facility] Rx#: [id number] Oral 240 / 240 Other: Meal Breakfast Percent of Meal Consumed 100% Weight 115.4 kg Blood Glucose* 375 307 Patient Weight 06/24/18 23:59 Weight 115.4 kg - Labs 06/24/18 05:01 06/24/18 05:01 Diabetes panel 06/24/18 Range/Units 05:01 Sodium 137 (136-145) mEq/L Potassium 3.8 (3.5-5.1) mEq/L Chloride 101 (98-107) mEq/L Carbon Dioxide 26 (23-29) mEq/L BUN 33 H (8-23) mg/dL Creatinine 0.97 (0.70-1.30) mg/dL Glucose 360 H (70-105) mg/dL Calcium 8.7 (8.6-10.3) mg/dL Calcium panel 06/24/18 Range/Units 05:01 Calcium 8.7 (8.6-10.3) mg/dL Pituitary panel 06/24/18 Range/Units 05:01 Sodium 137 (136-145) mEq/L Potassium 3.8 (3.5-5.1) mEq/L Chloride 101 (98-107) mEq/L Carbon Dioxide 26 (23-29) mEq/L BUN 33 H (8-23) mg/dL Creatinine 0.97 (0.70-1.30) mg/dL Glucose 360 H (70-105) mg/dL Calcium 8.7 (8.6-10.3) mg/dL Adrenal panel 06/24/18 Range/Units 05:01 Sodium 137 (136-145) mEq/L Potassium 3.8 (3.5-5.1) mEq/L Chloride 101 (98-107) mEq/L Carbon Dioxide 26 (23-29) mEq/L BUN 33 H (8-23) mg/dL Creatinine 0.97 (0.70-1.30) mg/dL Glucose 360 H (70-105) mg/dL Calcium 8.7 (8.6-10.3) mg/dL - Attending Attestation I have personally performed a face to face evaluation on this patient. I have reviewed and agree with the care plan. History and Exam by me shows: The patient is seen and evaluated on morning rounds with the acute care surgery team. He is not having any pain. He has full function of his femoral nerve. He had 10 mL out of the Tian-Pina drain. If she is discharged later today, he should be discharged with the Tian-Pina drain in place. Follow-up acute care surgery clinic Luis Manuel Herrera MD FACS
--- NOTE | 2018-06-24 09:04 | Discharge Summary ---
- NOTES TO OUTPATIENT PROVIDER Notes to Outpatient Provider: f/u withsurgery within a week. f/u with oncology within 2-3 weeks. f/u with PCP within a week. Orders not resulted at time of discharge: Pending orders 06/21/18 16:34 Culture,Blood [BC] Routine 06/22/18 14:45 Tissue Flow Cytometry Routine Surgical Pathology [PTH] Routine 06/22/18 21:00 Sputum Culture [Culture,Sputum with Gram Stain] [RM] Routine Date of Encounter: 06/24/18 Time of Encounter: 09:01 - Discharge Diagnosis (1) Cellulitis of left groin Priority: Primary Status: Acute (2) Acute exacerbation of chronic obstructive airways disease Priority: Primary Status: Acute (3) Chronic systolic (congestive) heart failure Priority: Secondary Status: Chronic (4) Non Hodgkin's lymphoma Priority: Secondary Status: Chronic Qualifiers: Non-Hodgkin lymphoma type: unspecified type Lymphoma site: inguinal Qualified Code(s): C85.95 - Non-Hodgkin lymphoma, unspecified, lymph nodes of inguinal region and lower limb (5) Diabetes mellitus Priority: Secondary Status: Chronic Qualifiers: Diabetes mellitus type: type 2 Diabetes mellitus manager long term care insulin use: with custodial use Diabetes mellitus complication status: without complication Qualified Code(s): E11.9 - Type 2 diabetes mellitus without complications; Z79.4 - FDC (current) use of insulin (6) DVT prophylaxis Priority: Primary Status: Acute Hospital course: Mr. Wilkes is a 67 year old male with pmh of COPD, Non-Hdogkins lymphoma, adrenal mass, chronic systolic CHF presenting with redness in the left groin of 1 day duration and shortness of breath. Patient says the main reason he came in was because he has noticed streaks of red in his left inner thigh and around thegroin, and he says the lymph node in the left groin feels painful. He denies any fevers or chill. He also complains of worsening shortness of breath and a cough productive of yellow phlegm in the last week. He has had some lower extremity swelling as well. In the ER, he had a CT abdomen done showing an enlarging centrally necrotic left inguinal lymph node with a possible abscess. He has been given breathing treatments and zosyn and he is being admitted for further management. He underw ent left groin abscess incision by general surgery on 06/22, per surgery note, the abscess looked more like a lymphocele rather than a necrotic lymph note. It was incised and sent for pathology, a LISSETTE drain was placed. Pt left leg swelling and redness significantly improved. He received 3 days of IV Zosyn, blood cx had no growth for 3 days. Pt was afebrile and labs were normal. Pt will be discharged home today, take oral abx for 5 more days, instruction of LISSETTE drain self care provided, f/u with PCP, Surgery, and oncology as scheduled. Discharge discussed with: patient Time spent discussing smoking cessation with patient: more than 10 minutes - Time Spent with Patient Total time spent providing and/or coordinating discharge services: Time spent: Greater than 30 minutes - Discharge Medications Prescriptions: New Cephalexin [Keflex] 750 mg PO BID #10 capsule Continued Aspirin [Lo-Dose Aspirin EC] 81 mg PO DAILY Tiotropium [place] [Spiriva Respimat] 2 puff IH DAILY Gabapentin [Neurontin] 900 mg PO TID Albuterol Sulfate [Albuterol Inhaler] 2 puff IH Q4HR PRN PRN Reason: Shortness Of Breath Losartan Potassium 100 mg PO DAILY Cyanocobalamin/Folic AC/Vit B6 [Folbee Tablet] 1 tab PO DAILY Insulin DETEMIR [Levemir Flextouch] 10 unit SQ BID #5 insuln.pen metFORMIN [Glucophage] 500 mg PO BIDWM #60 tablet Carvedilol [Coreg] 12.5 mg PO DAILY@0800 Fluticasone/Vilanterol [Breo Ellipta 100-25 Mcg INH] 1 each IH DAILY glyBURIDE [GlyBURIDE] 5 mg PO DAILY@1200 Lidocaine 1 gm TP BID PRN PRN Reason: FOOIT PAIN Rosuvastatin Calcium [Crestor] 10 mg PO DAILY Spironolactone [Aldactone] 50 mg PO DAILY Albuterol Neb [Proventil Neb] 2.5 mg IH Q4HR PRN PRN Reason: SOB/WHEEZING Multivitamin [One Daily Essential] 1 each PO DAILY Tramadol HCl [Ultram] 50 mg PO QID PRN 3 Days #12 tablet PRN Reason: Mild Pain Discontinued Potassium Chloride [K-Tab ER] 20 meq PO DAILY PRN PRN Reason: WITH LASIX Furosemide [Lasix] 40 mg PO DAILY PRN PRN Reason: FOOT SWELLING Home Medications: Aspirin [Lo-Dose Aspirin EC] 81 mg PO DAILY 04/07/17 [History] Albuterol Sulfate [Albuterol Inhaler] 2 puff IH Q4HR PRN 05/21/18 [History] Cyanocobalamin/Folic AC/Vit B6 [Folbee Tablet] 1 tab PO DAILY 05/21/18 [History] Gabapentin [Neurontin] 900 mg PO TID 05/21/18 [History] Losartan Potassium 100 mg PO DAILY 05/21/18 [History] Tiotropium [place] [Spiriva Respimat] 2 puff IH DAILY 05/21/18 [History] Insulin DETEMIR [Levemir Flextouch] 10 unit SQ BID #5 insuln.pen 05/24/18 [Rx] metFORMIN [Glucophage] 500 mg PO BIDWM #60 tablet 05/24/18 [Rx] Albuterol Neb [Proventil Neb] 2.5 mg IH Q4HR PRN 06/21/18 [History] Carvedilol [Coreg] 12.5 mg PO DAILY@0800 06/21/18 [History] Fluticasone/Vilanterol [Breo Ellipta 100-25 Mcg INH] 1 each IH DAILY 06/21/18 [History] Lidocaine 1 gm TP BID PRN 06/21/18 [History] Multivitamin [One Daily Essential] 1 each PO DAILY 06/21/18 [History] Rosuvastatin Calcium [Crestor] 10 mg PO DAILY 06/21/18 [History] Spironolactone [Aldactone] 50 mg PO DAILY 06/21/18 [History] glyBURIDE [GlyBURIDE] 5 mg PO DAILY@1200 06/21/18 [History] Cephalexin [Keflex] 750 mg PO BID #10 capsule 06/24/18 [Rx] Tramadol HCl [Ultram] 50 mg PO QID PRN 3 Days #12 tablet 06/24/18 [Rx] Allergies/Adverse Reactions: Allergy/AdvReac Type Severity Reaction Status Date / Time No Known Allergies Allergy Verified 12/22/17 11:12 Date of admission: 06/22/18 23:20 Primary care physician: Lety Awan APN Consults: 06/21/18 16:22 Consult to Surgery [CONS] Routine Consulting Provider: Acute Care Surgery Reason for Consult: left lthigh cellultis Call Completed: Yes 06/22/18 11:19 Consult to Nurse Navigator [CONS] Routine Comment: CHF 06/22/18 14:22 Consult to Oncology [CONS] Routine Consulting Provider: Oncology [facility] Reason for Consult: hx of non-Hodgkin's lymphoma currently has a centrally necrotic left inguinal lymph node with possible abscess Time Notified: 14:25 Call Completed: Yes 06/24/18 08:23 Consult to Business Development Engineer [CONS] Routine Reason for SW Consult: C for LISSETTE drain mgt Anticipated date of discharge: 06/24/18 - Constitutional Vitals: Temp Pulse Resp BP Pulse Ox 97.5 F L 86 20 129/75 91 06/24/18 07:10 06/24/18 07:10 06/24/18 07:17 06/24/18 07:10 06/24/18 07:17 General appearance: Present: A&O X 3, morbidly obese Exam: Skin: Left groin post surgical change with LISSETTE drain in place. Eyes: Sclera is white. There is no discharge from eyes. ENMT: Oral/pharyngeal mucosa is normal in appearance. There is no discharge from nose or ears. Respiratory: Expiratory wheezes. CV: Heart is regular with no gallop or murmur. GI: Abdomen is flat and soft with no palpable mass or visceromegaly. : There is no tenderness in patient's flanks bilaterally. Neuro exam: He has good strength in upper and lower extremities. He has normal eye movements. Psychiatric: He has normal affect. His thought process is appropriate to the situation. - Patient Status Disposition: Home, Self-Care Condition: Fair Functional capacity at discharge: independent ambulation Overall status at discharge: patient is progressing back to baseline - Discharge Instructions Instructions: Tian-Pina Drain Care (DC) Follow Up With: Lety Awan APN [Primary Care Provider] - 06/30/18 9:20 am Alex Linton [Partnered Physician] - 06/29/18 8:45 am Additional Instructions: Daily LISSETTE Drain Care: 1. Remove dressings. Shower with antibacterial soap. 2. Do not let the LISSETTE drain dangle from your body. Use the safety pin to secure to your clothing. Secure the LISSETTE to a lanyard or other type of long necklace when you shower. 3. Replace drain gauze and taped to secure. 4. Record the output from your LISSETTE bulb (at least once daily) on the form provided and bring this with you to your follow-up appointment. 5. Keep the LISSETTE drain to suction (squeeze the bulb and replace the cap while squeezing). 6. Strip the lines twice daily (hold onto the line as close to the body as you can, then with the other hand push the contents of the line into the LISSETTE bulb). - Diet and Activity Activity: resume usual activities as tolerated Diet: diabetic diet, low fat, low cholesterol, low salt diet
== END 2018-06-24 11:19 | disposition home or self-care (01) | DRG 803 ==
LOC: EMEROOARM 09:46 → 3BNU 09:46
PROVIDERS: ADMIT Student in an Organized Health Care Education/Training Program; ATTEND Student in an Organized Health Care Education/Training Program

== ENCOUNTER 2018-07-16 06:56 | Inpatient (IN) ==
--- NOTE | 2018-07-16 07:19 | Anesthesia Evaluation PreOp ---
Date of Encounter: 07/16/18 Time of Encounter: 07:17 - Past History Planned Operation: Robotic Right Adrenalectomy Cardiac History: IL (IL x 2), CHF, HTN, Hyperlipidemia, Arrhythmia, Cardiac Stent (stent x 4) Pulmonary History: Smoker (53 years), COPD, Snore, CHANTE Dx (uses CPAP) WEIGHER AND CHARGER History: Other (chronic back pain) Other Medical History: Diabetes Type II, GERD, Other (non Hodgkins lymphoma S/P chemo) Anesthesia History: No Prior Anesthetic Complications, Past Anesthesia Alcohol Use: none Drug use: none Medications and Allergies Aspirin [Lo-Dose Aspirin EC] 81 mg PO DAILY 04/07/17 [History] Albuterol Sulfate [Albuterol Inhaler] 2 puff IH Q4HR PRN 05/21/18 [History] Cyanocobalamin/Folic AC/Vit B6 [Folbee Tablet] 1 tab PO DAILY 05/21/18 [History] Gabapentin [Neurontin] 900 mg PO TID 05/21/18 [History] Tiotropium [place] [Spiriva Respimat] 2 puff IH DAILY 05/21/18 [History] Insulin DETEMIR [Levemir Flextouch] 10 unit SQ BID #5 insuln.pen 05/24/18 [Rx] metFORMIN [Glucophage] 500 mg PO BIDWM #60 tablet 05/24/18 [Rx] Albuterol Neb [Proventil Neb] 2.5 mg IH Q4HR PRN 06/21/18 [History] Carvedilol [Coreg] 12.5 mg PO DAILY@0800 06/21/18 [History] Fluticasone/Vilanterol [Breo Ellipta 100-25 Mcg INH] 1 each IH DAILY 06/21/18 [History] Lidocaine 1 gm TP BID PRN 06/21/18 [History] Multivitamin [One Daily Essential] 1 each PO DAILY 06/21/18 [History] Rosuvastatin Calcium [Crestor] 10 mg PO DAILY 06/21/18 [History] Spironolactone [Aldactone] 50 mg PO DAILY 06/21/18 [History] glyBURIDE [GlyBURIDE] 5 mg PO DAILY@1200 06/21/18 [History] Allergy/AdvReac Type Severity Reaction Status Date / Time No Known Allergies Allergy Verified 07/01/18 14:30 - Meds/Allergy Pre-op Review Medications Reviewed: Yes Allergies Reviewed: Yes Beta Blockers on Current Med List: Yes If Beta Blockers taken, Date/Time (Last Dose taken): 07/16/2018 at 0600 Anesthesia Results - Labs Laboratory Tests 07/01/18 07/01/18 11:27 11:27 WBC 10.3 Hgb 13.1 Hct 40.1 Plt Count 229 Sodium 136 Potassium 4.2 BUN 19 Creatinine 0.97 - Imaging EKG: report reviewed (06/21/2018 Sinus rhythm) Additional studies: 07/08/2018 Cardiac F/U with Dr Michelle high risk for surgery (MACE>11%) with optimized CV medications No further CV workup for surgery 05/04/2018 Stress Impression: Perfusion imaging was positive for ischemia.There is a small sized reversible perfusion defect which is mild in intensity in the apex and apical lateral segments. SDS =4. Perfusion imaging was positive for infarct.There is a medium sized fixed perfusion defect which is moderate to severe in intensity in the inferior segment, consistent with prior infarct Gated EF = 30%. The LV is dilated. Pharmacologic ECG was non diagnostic for ischemia. There is no evidence of TID. Ordering physician notified by eCW 07/12/2018 Limited Echo Impressions: LVEF 30-35%. Moderately dilated left ventricle. There is no LV thrombus. Definity echo contrast was used. 04/06/2018 Echo Impressions: LVEF 30%. Severe global LV systolic dysfunction. No LV apical thrombus visualized on this non-contrasted study. Mildly dilated left ventricle. Indeterminate LV diastolic function. RV is not well visualized. Mild mitral regurgitation. Unable to estimate RVSP due to suboptimal TR signal. Anesthesia Exam O2 Sat Height 1.8 m Weight 115.666 kg O2 Sat by Pulse Oximetry 95 Vital Signs Temp Pulse Resp BP Pulse Ox 97.9 F 93 18 101/64 95 07/16/18 07:56 07/16/18 07:56 07/16/18 07:56 07/16/18 07:56 07/16/18 07:56 Blood Glucose* 158 Height: 5'11'' Weight: 255 lbs NPO (# of Hours): 8 Pain Scale: 0 Pain Scale Used: Numeric (1 - 10) - HEENT Pupil (Motor): EOMI Mallampati: II Teeth: Edentulous Oral Opening: Greater than 3 - WEIGHER AND CHARGER LOC: Oriented WEIGHER AND CHARGER Motor: Normal RUE, Normal LUE, Normal RLE, Normal LLE, Normal Face WEIGHER AND CHARGER Sensory: Normal: Face, Deficit: RUE (neuropathy), LUE (neuropathy), RLE (neuropathy), LLE (neuropathy) - Cardiac Rhythm: Regular Murmur: None - Pulmonary Breath Sounds: bilateral Rhonchi Respiratory Effort: Symmetrical Anesthesia Assess/Plan ASA Score: 4 (Patient understands that he is at increased risk for perioperative complications including myocardial infarct, arrhythmias, CVA, post op vent support/ICU stay, and . Patient wishes to proceed.) Level of consciousness: Cooperative, Oriented, Tranquil Anesthetic Plan: General Monitoring Plan: Standard Monitors, A-Line Recovery Plan: PACU
--- NOTE | 2018-07-16 07:45 | History & Physical Report ---
Date of Encounter: 07/16/18 Time of Encounter: 07:45 24 Hour HP Update - Instructions Instructions: If the History and Physical is less than 30 days old and was completed prior to A.M. admission and or procedure and has NOT been updated on calendar day of procedure please complete this update prior to performing procedure. - Update Patient reports changes in Medical Condition: No Changes in examination, assessment, or condition: No Changes in Medication: No Preop tests/diagnostics Reviewed: Yes Surgery Remains Indicated: Yes Consent for Planned Operative Procedure(s) Verified: Yes - Pre-Operative Checklist Preoperative Checklist Indicated: Yes Prophylactic Antibiotic Ordered: Yes Home Medications Include Beta Dez: Yes Beta Dez Taken Today (Day of Surgery): Yes
[2018-07-16] MEDS ORDERED: cefOXitin 2,000 MG in Water for inj. (sterile) 20 ML 20 ML IVP ONE (07:48)
[2018-07-16] MEDS ORDERED: Albuterol 2.5 MG/3 ML NEBULIZER IH ONE (07:48)
[2018-07-16] MEDS ORDERED: Heparin 1,000 UNITS/500 mL 500 ML ONE (07:55)
[2018-07-16] MEDS ORDERED: Ringers Solution, Lactated 1,000 ML IVC SCH ×2 (08:00→12:18)
[2018-07-16] MEDS ORDERED: *HR* OxyCODONE Immed Rel 5 MG TABLET PO PRN (08:10)
[2018-07-16] MEDS ORDERED: Ondansetron 4 MG/2 ML VIAL IVP ONE (08:10)
[2018-07-16] MEDS ORDERED: EPHEDrine 50 MG/ML VIAL ONE (08:19)
[2018-07-16] MEDS ORDERED: *HR* Phenylephrine 10 MG/ML VIAL ONE (08:20)
[2018-07-16] MEDS ORDERED: *HR* Norepinephrine 4 MG/4 ML VIAL IVC ONE (08:24)
[2018-07-16] MEDS: *HR* HYDROmorphone (PF) 1 MG/ML SYRINGE IVP PRN ×2 (10:52→10:57)
[2018-07-16] MEDS ORDERED: Ondansetron 4 MG/2 ML VIAL IVP PRN ×2 (11:01→12:18)
[2018-07-16] MEDS ORDERED: OXYCODONE Oral CONC 10 MG/0.5 ML ORAL.SYG SL PRN (11:01)
[2018-07-16] MEDS ORDERED: 0.9 % Sodium Chloride w KCl 20 MEQ/1,000 ML MLS IVC SCH (11:15)
--- NOTE | 2018-07-16 11:35 | Anesthesia Evaluation Post Op ---
Date of Encounter: 07/16/18 Time of Encounter: 11:34 - Vital Signs Vital Signs: Vital Signs/O2 Sat, Most Current Temp Pulse Resp BP Pulse Ox 97.6 F 87 16 124/76 92 07/16/18 11:28 07/16/18 11:28 07/16/18 11:28 07/16/18 11:28 07/16/18 11:28 - Lungs Lungs: Clear Ascult./Percussion - Airway Airway: Non-obstructed - Cardiovascular Regular Rate - Mental Status Mental Status: Asleep with brisk response to light stimulation - Pain Pain Scale: 4 Pain Scale used: Numeric (1 - 10) - Nausea Vomiting Nausea Vomiting: Not Present - Hydration Hydration: Ice chips, Has not voided - Discharge PostOp Status: Transfer Patient to floor
[2018-07-16] MEDS: 0.9 % Sodium Chloride w KCl 20 MEQ/1,000 ML MLS IVC SCH (13:06)
[2018-07-16] MEDS: OXYCODONE Oral CONC 10 MG/0.5 ML ORAL.SYG SL PRN ×2 (13:07→18:52)
--- NOTE | 2018-07-16 15:57 | Operative Note ---
Date of procedure: 07/16/18 Pre-op diagnosis: Right adrenal mass Post-op diagnosis: same Procedure: Robotic right adrenalectomy Anesthesia: GETA Surgeon: Dave Mota Was there an tutoring assistant present: Yes Manager Fund: Jsesie Mahmood Estimated blood loss (cc): 100 Specimen: Right adrenal mass Condition: stable Disposition: observation Procedure in Detail: After informed consent, patient was taken the operating room placed in a supine position. After adequate sedation anesthesia patient was placed on a beanbag in the left lateral decubitus position. The bed was then placed in a jackknife position. The patient was then placed in slight Trendelenburg. The abdomen was prepped and draped. A 12 mm cannulas placed at the midclavicular line approximate 6 finger breast below the costal margin. Once it was inserted and pneumoperitoneum was created. 3 additional 8 mm cannulas were placed within the abdomen under direct visualization. There were 2 additional 5 mm cannulas placed should teach equally along the right lateral abdominal wall as well. Once all cannulas were in place the liver was retracted with a pretzel retractor in place to the fast clamp. The robot was docked over the patient's right hip and flank. There were adhesions taken down from the gallbladder. Once completed I was able to visualize the retrohepatic space. The vena cava was easily identified. An incision was made in the retroperitoneum with a vessel sealer. At this point dissection along the vena cava was carried out cephalad. Dissection was further carried out towards the anterior surface of the kidney. Once the kidney had been identified our attention was turned more cephalad. Has able to identify adrenal gland. Once it had been adequately identified the inferior pole of the adrenal gland was dissected first. The posterior aspect was dissected next. All of which occurred with the vessel sealer. Once it had been fully mobilized been the medial aspect of the gland was taken with a vessel sealer until we encountered the right adrenal vein. This was clipped with a clip. The vena cava was kept out of harm's way. Once the adrenal gland was fully dissected free, it was placed in endoscopic bag. This was removed through the 12 mm cannula site. We confirmed hemostasis had been obtained. At this point the pneumoperitoneum was evacuated. The 12 mm cannula site was closed with an 0 Vicryl suture. Skin incisions were closed with 4-0 Vicryl suture and Dermabond. He tolerated the procedure well.
[2018-07-16] MEDS: Gabapentin 300 MG CAPSULE PO SCH (22:21)
[2018-07-17] MEDS: 0.9 % Sodium Chloride w KCl 20 MEQ/1,000 ML MLS IVC SCH ×2 (02:22→15:15)
[2018-07-17] MEDS: OXYCODONE Oral CONC 10 MG/0.5 ML ORAL.SYG SL PRN ×4 (05:55→19:57)
[2018-07-17] MEDS ORDERED: OXYCODONE Oral CONC 10 MG/0.5 ML ORAL.SYG SL ONE (07:10)
[2018-07-17] MEDS: Gabapentin 300 MG CAPSULE PO SCH ×3 (08:08→19:56)
[2018-07-17] MEDS ORDERED: *HR* Dextrose 50 % in Water (Syg) 50 ML SYRINGE IVP PRN (08:38)
[2018-07-17] MEDS ORDERED: Dextrose Gel 15 GM/37.5 ML TUBE PO PRN ×2 (08:38)
[2018-07-17] MEDS ORDERED: D5% in Water 1,000 ML IVC PRN (08:38)
[2018-07-17] MEDS: Insulin LISPRO 300 UNITS/3 ML VIAL SQ SCH ×3 (10:27→17:12)
[2018-07-17] MEDS ORDERED: OXYCODONE Oral CONC 10 MG/0.5 ML ORAL.SYG SL SCH (17:23)
--- NOTE | 2018-07-17 17:51 | General Surgery Progress Note ---
Date of Encounter: 07/17/18 Time of Encounter: 17:48 - Assessment and Plan (1) Adrenal mass Current Visit: Yes Status: Acute 67M POD #1 s/p robotic excision of R adrenal mass; pain not controlled; tolerating diet; diet as tolerated activity as tolerated bowel regimen for bowel movements will plan for d/c on 07/19 will cont to monitor pain control Subjective Patient reports: no new complaints, feels better, still having pain Objective Vital Signs - Last 8 Hours Temp Pulse Resp BP Pulse Ox 07/17/18 14:37 97.7 F 99 18 139/84 96 07/17/18 11:07 98.0 F 95 18 137/78 94 Intake and Output 07/17/18 07/17/18 07/17/18 07:59 15:59 23:59 Intake Total 1000 / 2840 1840 / 2840 Output Total 1100 / 1625 525 / 1625 Balance -100 / 1215 1315 / 1215 Intake: IV Fluids 1000 / 2000 1000 / 2000 KCl 20 mEq in 0.9% Sodium 1000 / 2000 1000 / 2000 Chloride 20 meq In 1,000 ml @ 75 mls/hr IVC .[id number] DANIELLE Rx#: [id number] Oral 840 / 840 Output: Urine 1100 / 1625 525 / 1625 Other: Meal Lunch Percent of Meal Consumed 100% # Voids 1 # Bowel Movements 0 Blood Glucose* 277 236 - General physical appearance no distress - Respiratory normal expansion, normal respiratory effort - Incision Incision: Present: clean and dry, intact - Neurologic CN 2-12 grossly intact Consult Discharge Plan - Plan Instructions: Laparoscopic Adrenalectomy (DC) Additional Instructions: General Surgical Discharge Instructions 1. No pushing, pulling, or lifting greater than 15 lbs for 2-4 weeks (depending upon procedure). 2. You may shower beginning today, but no tub baths, soaking, or swimming for 2 weeks. 3. You may resume driving when you are off narcotics and are safe to react in a car. 4. Take ibuprofen every 8 hours for discomfort. If this does not relieve discomfort, you may take the as needed Percocet. Take narcotics as directed. Do not take more narcotics then directed and do not share your narcotics with any other person. Do not drink alcohol while on narcotics. 5. Take stool softeners (Colace) or a water based laxative (Miralax) while taking narcotics. You may hold for loose stools. 6. Report any fevers greater than 100.5F, increase abdominal discomfort, drainage that looks like pus, increased redness or pain at the surgical site, or any vomiting. 7. Report any pain in the calves, shortness of breath, or rapid heartbeat. 8. Follow-up in the office as directed. 9. If you were prescribed antibiotics, do not stop them without talking to your provider. Referrals: Yajaira Roblero CNP [Advanced Practice Nurse] - 07/30/18 9:15 am NONE,PCP [Primary Care Provider] - Prescriptions: Docusate Sodium [Colace] 100 mg PO BID PRN #30 capsule PRN Reason: Contstipation Ibuprofen 800 mg PO Q8H PRN #30 tablet PRN Reason: Postsurgical pain OxyCODONE/APAP 5/325 [Percocet 5/325 MG] 1 each PO Q6HR PRN 7 Days #28 tablet PRN Reason: Pain Ondansetron ODT [Zofran ODT] 4 mg SL Q4HR PRN #15 tab.rapdis PRN Reason: Postsurgical nausea
[2018-07-17 18:15] LABS: BUN/Creatinine Ratio 24 (6-26); Blood Urea Nitrogen 21 mg/dL (8-23); Calcium 9.6 mg/dL (8.6-10.3); Carbon Dioxide 25 mEq/L (23-29); Chloride 102 mEq/L (98-107); Glucose 241 mg/dL (70-105); Osmolality,Calculated 293 (280-300); Potassium 4.4 mEq/L (3.5-5.1); Sodium 136 mEq/L (136-145); eGFR For African Americans > 60 (> 60); eGFR For Non-African Americans > 60 (> 60)
[2018-07-17] MEDS ORDERED: Insulin LISPRO 300 UNITS/3 ML VIAL SQ SCH (21:00)
[2018-07-18] MEDS: OXYCODONE Oral CONC 10 MG/0.5 ML ORAL.SYG SL PRN ×3 (00:13→10:01)
[2018-07-18] MEDS: 0.9 % Sodium Chloride w KCl 20 MEQ/1,000 ML MLS IVC SCH (03:35)
[2018-07-18 07:09] VITALS: BP 138/87
[2018-07-18] MEDS: Insulin LISPRO 300 UNITS/3 ML VIAL SQ SCH (09:50)
[2018-07-18] MEDS: Gabapentin 300 MG CAPSULE PO SCH (10:00)
--- NOTE | 2018-07-18 14:07 | Discharge Summary ---
<Jazmyn Morejon P - Last Filed: 07/18/18 14:15> - NOTES TO OUTPATIENT PROVIDER Notes to Outpatient Provider: Follow-up with Dr. Rosa within 2 weeks in out patient surgery. Please read the discharge instructions Orders not resulted at time of discharge: Pending orders 07/16/18 09:16 Red Blood Cells [BBK] Routine 07/16/18 10:08 Surgical Pathology [PTH] Routine Date of Encounter: 07/18/18 Time of Encounter: 02:00 - Discharge Diagnosis (1) Adrenal mass Priority: Primary Status: Acute Comments: robotic excision of R adrenal mass; on 07/16/2018 patient is getting better, no post op complication. General Surgery Exam Initial Vital Signs Temp Pulse Resp BP Pulse Ox 97.9 F 93 18 101/64 95 07/16/18 07:56 07/16/18 07:56 07/16/18 07:56 07/16/18 07:56 07/16/18 07:56 - General physical appearance well nourished, no distress - Eyes PERRL, normal ocular movement - ENT normal mucosa - Neck trachea midline, no lymphadectomy, no venous distension - Respiratory normal respiratory effort, clear to percussion, clear to auscultation - Cardiovascular Cardiovascular exam: Present: RRR, regular rhythm, no murmurs/rubs/gallops - Abdomen Abdomen general surgery: Present: bowel sounds present, soft, non tender. Absent: guarding, rebound, rigid - Incision Incision: Present: clean and dry, intact - Integumentary Integumentary general surgery: Present: warm and dry - Neurologic Present: CN 2-12 grossly intact, normal coordination, normal sensation - Musculoskeletal Present: normal gait - Psychiatric Psychiatric general surgery: Present: A&Ox3, appropriate, oriented to person, oriented to place - Hospital Course Hospital course: Mr. Wilkes is a 67 year old male who was admitted for right adrenal mass excision. Robotic right adrenalectomy was done on 07/16/2018 . He is feeling better after surgery, his vitals are stable, no fever for last more than 24 hours. He has a normal bowel movement. We are planning to discharge him home and he will follow-up Dr. Rosa in outpatient surgery within 2 weeks. - Time Spent with Patient Total time spent providing and/or coordinating discharge services: - Discharge Medications Prescriptions: New Docusate Sodium [Colace] 100 mg PO BID PRN #30 capsule PRN Reason: Contstipation Ibuprofen 800 mg PO Q8H PRN #30 tablet PRN Reason: Postsurgical pain OxyCODONE/APAP 5/325 [Percocet 5/325 MG] 1 each PO Q6HR PRN 7 Days #28 tablet PRN Reason: Pain Ondansetron ODT [Zofran ODT] 4 mg SL Q4HR PRN #15 tab.rapdis PRN Reason: Postsurgical nausea Continued Aspirin [Lo-Dose Aspirin EC] 81 mg PO DAILY Tiotropium [place] [Spiriva Respimat] 2 puff IH DAILY Gabapentin [Neurontin] 900 mg PO TID Albuterol Sulfate [Albuterol Inhaler] 2 puff IH Q4HR PRN PRN Reason: Shortness Of Breath Insulin DETEMIR [Levemir Flextouch] 10 unit SQ BID #5 insuln.pen metFORMIN [Glucophage] 500 mg PO BIDWM #60 tablet Carvedilol [Coreg] 12.5 mg PO DAILY@0800 Fluticasone/Vilanterol [Breo Ellipta 100-25 Mcg INH] 1 each IH DAILY glyBURIDE [GlyBURIDE] 5 mg PO DAILY@1200 Rosuvastatin Calcium [Crestor] 10 mg PO DAILY Spironolactone [Aldactone] 50 mg PO DAILY Albuterol Neb [Proventil Neb] 2.5 mg IH Q4HR PRN PRN Reason: SOB/WHEEZING Multivitamin [One Daily Essential] 1 each PO DAILY Furosemide [Lasix] 40 mg PO DAILY PRN PRN Reason: SWELLING Lidocaine/Prilocaine [Emla] 1 gm TP BID PRN PRN Reason: Pain Losartan Potassium 100 mg PO DAILY Potassium Chloride [K-Tab ER] 20 meq PO BID PRN PRN Reason: SWELLING Tramadol HCl [Ultram] 50 mg PO Q6H PRN PRN Reason: Pain Home Medications: Aspirin [Lo-Dose Aspirin EC] 81 mg PO DAILY 04/07/17 [History] Albuterol Sulfate [Albuterol Inhaler] 2 puff IH Q4HR PRN 05/21/18 [History] Gabapentin [Neurontin] 900 mg PO TID 05/21/18 [History] Tiotropium [place] [Spiriva Respimat] 2 puff IH DAILY 05/21/18 [History] Insulin DETEMIR [Levemir Flextouch] 10 unit SQ BID #5 insuln.pen 05/24/18 [Rx] metFORMIN [Glucophage] 500 mg PO BIDWM #60 tablet 05/24/18 [Rx] Albuterol Neb [Proventil Neb] 2.5 mg IH Q4HR PRN 06/21/18 [History] Carvedilol [Coreg] 12.5 mg PO DAILY@0800 06/21/18 [History] Fluticasone/Vilanterol [Breo Ellipta 100-25 Mcg INH] 1 each IH DAILY 06/21/18 [History] Multivitamin [One Daily Essential] 1 each PO DAILY 06/21/18 [History] Rosuvastatin Calcium [Crestor] 10 mg PO DAILY 06/21/18 [History] Spironolactone [Aldactone] 50 mg PO DAILY 06/21/18 [History] glyBURIDE [GlyBURIDE] 5 mg PO DAILY@1200 06/21/18 [History] Docusate Sodium [Colace] 100 mg PO BID PRN #30 capsule 07/16/18 [Rx] Furosemide [Lasix] 40 mg PO DAILY PRN 07/16/18 [History] Ibuprofen 800 mg PO Q8H PRN #30 tablet 07/16/18 [Rx] Lidocaine/Prilocaine [Emla] 1 gm TP BID PRN 07/16/18 [History] Losartan Potassium 100 mg PO DAILY 07/16/18 [History] Ondansetron ODT [Zofran ODT] 4 mg SL Q4HR PRN #15 tab.rapdis 07/16/18 [Rx] OxyCODONE/APAP 5/325 [Percocet 5/325 MG] 1 each PO Q6HR PRN 7 Days #28 tablet 07/16/18 [Rx] Potassium Chloride [K-Tab ER] 20 meq PO BID PRN 07/16/18 [History] Tramadol HCl [Ultram] 50 mg PO Q6H PRN 07/16/18 [History] Allergies/Adverse Reactions: Allergy/AdvReac Type Severity Reaction Status Date / Time No Known Allergies Allergy Verified 07/16/18 08:46 Date of admission: 07/16/18 11:43 Primary care physician: PCP NONE Procedures and tests throughout hospitalization: Robotic right adrenalectomy on 07/16/2018 Labs on day of discharge: Labs from last 24 hours 07/17/18 07/17/18 07/17/18 20:14 17:31 17:09 Sodium 136 Potassium 4.4 Chloride 102 Carbon Dioxide 25 BUN 21 Creatinine 0.89 Est GFR ( Amer) > 60 Est GFR (Non-Af Amer) > 60 BUN/Creatinine Ratio 24 Glucose 241 H POC Glucose 239 H 236 H Calculated Osmolality 293 Calcium 9.6 07/17/18 07/17/18 11:07 08:17 Sodium Potassium Chloride Carbon Dioxide BUN Creatinine Est GFR ( Amer) Est GFR (Non-Af Amer) BUN/Creatinine Ratio Glucose POC Glucose 277 H 236 H Calculated Osmolality Calcium - Patient Status Disposition: Home, Self-Care Condition: Good Overall status at discharge: patient is progressing back to baseline - Discharge Instructions Instructions: Laparoscopic Adrenalectomy (DC) Follow Up With: Yajaira Roblero CNP [Advanced Practice Nurse] - 07/30/18 9:15 am NONE,PCP [Primary Care Provider] - Additional Instructions: General Surgical Discharge Instructions 1. No pushing, pulling, or lifting greater than 15 lbs for 2-4 weeks (depending upon procedure). 2. You may shower beginning today, but no tub baths, soaking, or swimming for 2 weeks. 3. You may resume driving when you are off narcotics and are safe to react in a car. 4. Take ibuprofen every 8 hours for discomfort. If this does not relieve discomfort, you may take the as needed Percocet. Take narcotics as directed. Do not take more narcotics then directed and do not share your narcotics with any other person. Do not drink alcohol while on narcotics. 5. Take stool softeners (Colace) or a water based laxative (Miralax) while taking narcotics. You may hold for loose stools. 6. Report any fevers greater than 100.5F, increase abdominal discomfort, drainage that looks like pus, increased redness or pain at the surgical site, or any vomiting. 7. Report any pain in the calves, shortness of breath, or rapid heartbeat. 8. Follow-up in the office as directed. 9. If you were prescribed antibiotics, do not stop them without talking to your provider. - Diet and Activity Activity: resume usual activities as tolerated <Emeterio Rosa - Last Filed: 07/18/18 14:23> Orders not resulted at time of discharge: Pending orders 07/16/18 09:16 Red Blood Cells [BBK] Routine 07/16/18 10:08 Surgical Pathology [PTH] Routine Date of Encounter: 07/18/18 - Discharge Diagnosis (1) Adrenal mass Status: Acute General Surgery Exam Initial Vital Signs Temp Pulse Resp BP Pulse Ox 97.9 F 93 18 101/64 95 07/16/18 07:56 07/16/18 07:56 07/16/18 07:56 07/16/18 07:56 07/16/18 07:56 - Hospital Course Hospital course: Mr. Wilkes is a 67 year old male - Time Spent with Patient Total time spent providing and/or coordinating discharge services: Date of admission: 07/16/18 11:43 Primary care physician: PCP NONE Labs on day of discharge: Labs from last 24 hours 07/17/18 07/17/18 07/17/18 20:14 17:31 17:09 Sodium 136 Potassium 4.4 Chloride 102 Carbon Dioxide 25 BUN 21 Creatinine 0.89 Est GFR ( Amer) > 60 Est GFR (Non-Af Amer) > 60 BUN/Creatinine Ratio 24 Glucose 241 H POC Glucose 239 H 236 H Calculated Osmolality 293 Calcium 9.6 07/17/18 07/17/18 11:07 08:17 Sodium Potassium Chloride Carbon Dioxide BUN Creatinine Est GFR ( Amer) Est GFR (Non-Af Amer) BUN/Creatinine Ratio Glucose POC Glucose 277 H 236 H Calculated Osmolality Calcium - Attending Attestation please see the general surgery charge summary for the A/P
--- NOTE | 2018-07-18 14:25 | Discharge Summary ---
Orders not resulted at time of discharge: Pending orders 07/16/18 09:16 Red Blood Cells [BBK] Routine 07/16/18 10:08 Surgical Pathology [PTH] Routine Date of Encounter: 07/18/18 Time of Encounter: 14:24 - Discharge Diagnosis (1) Adrenal mass Priority: Primary Status: Acute Comments: 67M POD #2 s/p excision of right adrenal mass; pain improved today; tolerating diet; voiding on his own; okay for d/c with follow up as scheduled General Surgery Exam Initial Vital Signs Temp Pulse Resp BP Pulse Ox 97.9 F 93 18 101/64 95 07/16/18 07:56 07/16/18 07:56 07/16/18 07:56 07/16/18 07:56 07/16/18 07:56 - General physical appearance well developed, no distress - Respiratory normal expansion, normal respiratory effort - Cardiovascular Cardiovascular exam: Present: RRR - Abdomen Abdomen general surgery: Present: soft, tender (appropriately tender) - Incision Incision: Present: clean and dry, intact - Integumentary Integumentary general surgery: Present: warm and dry - Neurologic Present: CN 2-12 grossly intact - Musculoskeletal Present: normal posture - Psychiatric Psychiatric general surgery: Present: A&Ox3 - Hospital Course Hospital course: Mr. Wilkes is a 67 year old male - Time Spent with Patient Total time spent providing and/or coordinating discharge services: Greater than 30 minutes - Discharge Medications Prescriptions: New Docusate Sodium [Colace] 100 mg PO BID PRN #30 capsule PRN Reason: Contstipation RX: Ibuprofen 800 mg PO Q8H PRN #30 tablet PRN Reason: Postsurgical pain RX: OxyCODONE/APAP 5/325 [Percocet 5/325 MG] 1 each PO Q6HR PRN 7 Days #28 tablet PRN Reason: Pain Ondansetron ODT [Zofran ODT] 4 mg SL Q4HR PRN #15 tab.rapdis PRN Reason: Postsurgical nausea Continued RX: Aspirin [Lo-Dose Aspirin EC] 81 mg PO DAILY RX: Tiotropium [place] [Spiriva Respimat] 2 puff IH DAILY RX: Gabapentin [Neurontin] 900 mg PO TID RX: Albuterol Sulfate [Albuterol Inhaler] 2 puff IH Q4HR PRN PRN Reason: Shortness Of Breath RX: Insulin DETEMIR [Levemir Flextouch] 10 unit SQ BID #5 insuln.pen RX: metFORMIN [Glucophage] 500 mg PO BIDWM #60 tablet RX: Carvedilol [Coreg] 12.5 mg PO DAILY@0800 RX: Fluticasone/Vilanterol [Breo Ellipta 100-25 Mcg INH] 1 each IH DAILY RX: glyBURIDE [GlyBURIDE] 5 mg PO DAILY@1200 RX: Rosuvastatin Calcium [Crestor] 10 mg PO DAILY RX: Spironolactone [Aldactone] 50 mg PO DAILY RX: Albuterol Neb [Proventil Neb] 2.5 mg IH Q4HR PRN PRN Reason: SOB/WHEEZING RX: Multivitamin [One Daily Essential] 1 each PO DAILY RX: Furosemide [Lasix] 40 mg PO DAILY PRN PRN Reason: SWELLING RX: Lidocaine/Prilocaine [Emla] 1 gm TP BID PRN PRN Reason: Pain RX: Losartan Potassium 100 mg PO DAILY RX: Potassium Chloride [K-Tab ER] 20 meq PO BID PRN PRN Reason: SWELLING RX: Tramadol HCl [Ultram] 50 mg PO Q6H PRN PRN Reason: Pain Home Medications: RX: Aspirin [Lo-Dose Aspirin EC] 81 mg PO DAILY 04/07/17 [History] RX: Albuterol Sulfate [Albuterol Inhaler] 2 puff IH Q4HR PRN 05/21/18 [History] RX: Gabapentin [Neurontin] 900 mg PO TID 05/21/18 [History] RX: Tiotropium [place] [Spiriva Respimat] 2 puff IH DAILY 05/21/18 [History] RX: Insulin DETEMIR [Levemir Flextouch] 10 unit SQ BID #5 insuln.pen 05/24/18 [Rx] RX: metFORMIN [Glucophage] 500 mg PO BIDWM #60 tablet 05/24/18 [Rx] RX: Albuterol Neb [Proventil Neb] 2.5 mg IH Q4HR PRN 06/21/18 [History] RX: Carvedilol [Coreg] 12.5 mg PO DAILY@0800 06/21/18 [History] RX: Fluticasone/Vilanterol [Breo Ellipta 100-25 Mcg INH] 1 each IH DAILY 06/21/18 [History] RX: Multivitamin [One Daily Essential] 1 each PO DAILY 06/21/18 [History] RX: Rosuvastatin Calcium [Crestor] 10 mg PO DAILY 06/21/18 [History] RX: Spironolactone [Aldactone] 50 mg PO DAILY 06/21/18 [History] RX: glyBURIDE [GlyBURIDE] 5 mg PO DAILY@1200 06/21/18 [History] Docusate Sodium [Colace] 100 mg PO BID PRN #30 capsule 07/16/18 [Rx] Ondansetron ODT [Zofran ODT] 4 mg SL Q4HR PRN #15 tab.rapdis 07/16/18 [Rx] RX: Furosemide [Lasix] 40 mg PO DAILY PRN 07/16/18 [History] RX: Ibuprofen 800 mg PO Q8H PRN #30 tablet 07/16/18 [Rx] RX: Lidocaine/Prilocaine [Emla] 1 gm TP BID PRN 07/16/18 [History] RX: Losartan Potassium 100 mg PO DAILY 07/16/18 [History] RX: OxyCODONE/APAP 5/325 [Percocet 5/325 MG] 1 each PO Q6HR PRN 7 Days #28 tablet 07/16/18 [Rx] RX: Potassium Chloride [K-Tab ER] 20 meq PO BID PRN 07/16/18 [History] RX: Tramadol HCl [Ultram] 50 mg PO Q6H PRN 07/16/18 [History] Allergies/Adverse Reactions: Allergy/AdvReac Type Severity Reaction Status Date / Time No Known Allergies Allergy Verified 07/16/18 08:46 Date of admission: 07/16/18 11:43 Primary care physician: PCP NONE Discharging clinician: Emeterio Rosa Anticipated date of discharge: 07/18/18 Labs on day of discharge: Labs from last 24 hours 07/17/18 07/17/18 07/17/18 20:14 17:31 17:09 Sodium 136 Potassium 4.4 Chloride 102 Carbon Dioxide 25 BUN 21 Creatinine 0.89 Est GFR ( Amer) > 60 Est GFR (Non-Af Amer) > 60 BUN/Creatinine Ratio 24 Glucose 241 H POC Glucose 239 H 236 H Calculated Osmolality 293 Calcium 9.6 07/17/18 07/17/18 11:07 08:17 Sodium Potassium Chloride Carbon Dioxide BUN Creatinine Est GFR ( Amer) Est GFR (Non-Af Amer) BUN/Creatinine Ratio Glucose POC Glucose 277 H 236 H Calculated Osmolality Calcium - Patient Status Disposition: Home, Self-Care Condition: Good - Discharge Instructions Instructions: Laparoscopic Adrenalectomy (DC) Follow Up With: Yajaira Roblero HEALTH AND FITNESS PROFESSOR [Advanced Practice Nurse] - 07/30/18 9:15 am NONE,PCP [Primary Care Provider] - Additional Instructions: General Surgical Discharge Instructions 1. No pushing, pulling, or lifting greater than 15 lbs for 2-4 weeks (depending upon procedure). 2. You may shower beginning today, but no tub baths, soaking, or swimming for 2 weeks. 3. You may resume driving when you are off narcotics and are safe to react in a car. 4. Take ibuprofen every 8 hours for discomfort. If this does not relieve discomfort, you may take the as needed Percocet. Take narcotics as directed. Do not take more narcotics then directed and do not share your narcotics with any other person. Do not drink alcohol while on narcotics. 5. Take stool softeners (Colace) or a water based laxative (Miralax) while taking narcotics. You may hold for loose stools. 6. Report any fevers greater than 100.5F, increase abdominal discomfort, drainage that looks like pus, increased redness or pain at the surgical site, or any vomiting. 7. Report any pain in the calves, shortness of breath, or rapid heartbeat. 8. Follow-up in the office as directed. 9. If you were prescribed antibiotics, do not stop them without talking to your provider. - Diet and Activity Activity: increase activity as tolerated Diet: advance to your usual diet
== END 2018-07-18 14:40 | disposition home or self-care (01) | DRG 614 ==
LOC: SAMDAY 06:56 → 3BNU 11:43
PROVIDERS: ADMIT Surgery; ATTEND Surgery

== ENCOUNTER 2019-07-17 02:41 | Inpatient (IN) ==
[2019-07-17] MEDS ORDERED: Ipratropium/Albuterol Neb 3 ML ONE (02:46)
[2019-07-17] MEDS ORDERED: methylPREDNISolone 125 MG/2 ML VIAL IVP ONE (02:52)
[2019-07-17] MEDS ORDERED: Ipratropium/Albuterol Neb 3 ML IH ONE (02:52)
[2019-07-17] MEDS ORDERED: methylPREDNISolone 125 MG/2 ML VIAL ONE (02:58)
[2019-07-17 03:03] LABS: ABG Base Excess -3 mEq/L (-2 to 3); ABG HCO3 27 mEq/L (21-27); ABG Oxygen Saturation 93 % (95-98); ABG PCO2 66 mmHg (35-45); ABG PH 7.22 pH Units (7.32-7.45); ABG PO2 84 mmHg (85-104); ABG TCO2 29 mEq/L (20-26); Blood Gas Modality AVAPS; Blood Gas VT 500 cc
[2019-07-17 03:13] LABS: Basophils # 0.1 K/mcL (0.0-0.2); Basophils % 0.7 %; Eosinophils # 0.5 K/mcL (0.0-0.6); Eosinophils % 3.7 %; Hematocrit 52.8 % (37.5-50.1); Hemoglobin 16.5 g/dL (12.9-16.9); Immature Granulocytes % 1.6 % (0-4); Lymphocytes # 3.9 K/mcL (0.6-4.6); Mean Corpuscular HGB Conc 31.3 g/dL (31.6-35.5); Mean Corpuscular Hemoglobin 29.5 pg (28.0-33.3); Mean Corpuscular Volume 94.3 fL (83.0-100.0); Mean Platelet Volume 11.2 fL (9.4-12.4); Monocytes # 0.7 K/mcL (0.0-1.3); Monocytes % 4.9 %; Platelet Count 279 K/mcL (140-400); Red Cell Distribution Width 14.6 % (11.5-14.5); Segmented Neutrophils % 62.1 %; White Blood Count 14.4 K/mcL (4.3-11.1)
[2019-07-17] MEDS ORDERED: Furosemide 40 MG/4 ML VIAL ONE (03:16)
[2019-07-17 03:23] LABS: Prothrombin Time 11.3 Seconds (9.4-12.1)
[2019-07-17 03:25] LABS: Activated Partial Thrombo Time 32.7 Seconds (26.0-36.0)
[2019-07-17 04:47] LABS: BUN/Creatinine Ratio 11 (6-26); Blood Urea Nitrogen 14 mg/dL (8-23); Carbon Dioxide 22 mEq/L (23-29); Chloride 105 mEq/L (98-107); Glucose 214 mg/dL (70-105); Osmolality,Calculated 299 (280-300); Potassium 4.8 mEq/L (3.5-5.1); Sodium 141 mEq/L (136-145); Troponin I 0.36 ng/mL (< 0.04); eGFR For African Americans > 60 (> 60); eGFR For Non-African Americans 56 (> 60)
[2019-07-17] MEDS ORDERED: Isovue-370 500 ML BOTTLE IVP ONE (05:06)
[2019-07-17] MEDS ORDERED: *HR* Heparin 5,000 UNIT/ML VIAL IVP ONE (05:10)
[2019-07-17] MEDS ORDERED: *HR* Heparin 5,000 UNIT/ML VIAL IVP PRN (05:10)
[2019-07-17 05:46] LABS: Hematocrit 47.4 % (37.5-50.1); Hemoglobin 15.2 g/dL (12.9-16.9); Mean Corpuscular HGB Conc 32.1 g/dL (31.6-35.5); Mean Corpuscular Hemoglobin 29.7 pg (28.0-33.3); Mean Corpuscular Volume 92.8 fL (83.0-100.0); Mean Platelet Volume 10.4 fL (9.4-12.4); Platelet Count 197 K/mcL (140-400); Red Blood Count 5.11 M/mcL (4.19-5.50); Red Cell Distribution Width 14.5 % (11.5-14.5); White Blood Count 8.9 K/mcL (4.3-11.1)
[2019-07-17 05:53] LABS: Heparin anti-factor XA UFH < 0.04 IU/mL (0.30-0.70); Prothrombin Time 11.4 Seconds (9.4-12.1)
[2019-07-17] MEDS: Heparin 25,000 UNIT/250 ML D5W 25,000 UNIT/250 ML IV.SOLN IVC SCH (06:03)
[2019-07-17] MEDS ORDERED: Aspirin 81 MG TAB.CHEW PO ONE (06:21)
[2019-07-17] MEDS ORDERED: Naloxone 0.4 MG/ML INJ IVP PRN (07:44)
[2019-07-17] MEDS ORDERED: D5% in Water 1,000 ML IVC PRN (08:06)
[2019-07-17] MEDS ORDERED: *HR* Dextrose 50 % in Water (Syg) 50 ML SYRINGE IVP PRN (08:06)
[2019-07-17] MEDS ORDERED: Dextrose Gel 15 GM/37.5 ML TUBE PO PRN ×2 (08:06)
[2019-07-17] MEDS ORDERED: Nitroglycerin 0.4 MG TAB.SUBL SL PRN (08:45)
[2019-07-17] MEDS ORDERED: Aspirin 81 MG TAB.CHEW PO SCH (09:00)
[2019-07-17] MEDS ORDERED: Furosemide 40 MG in 0.9 % Sodium Chloride 50 ML IV SCH (09:00)
[2019-07-17] MEDS: cefTRIAXone 1,000 MG in Water for inj. (sterile) 10 ML IVP SCH (09:36)
[2019-07-17] MEDS: Furosemide 40 MG/4 ML VIAL IVP SCH ×2 (09:36→20:48)
[2019-07-17] MEDS: MethylPREDNISolone 40 MG/ML VIAL IVP SCH ×3 (09:37→22:57)
[2019-07-17] MEDS: *HR* GlyBURIDE 5 MG TABLET PO SCH (09:37)
[2019-07-17] MEDS: carvediloL 25 MG TABLET PO SCH (09:39)
[2019-07-17] MEDS: Aspirin Enteric Coated 81 MG Tablet PO SCH (09:39)
[2019-07-17] MEDS: Azithromycin 250 MG TABLET PO SCH (09:39)
[2019-07-17] MEDS: Gabapentin 300 MG CAPSULE PO SCH ×3 (09:39→20:48)
[2019-07-17] MEDS: Ipratropium/Albuterol Neb 3 ML IH SCH ×5 (10:01→23:26)
[2019-07-17 10:45] LABS: Phosphorous 2.7 mg/dL (2.7-4.5)
[2019-07-17 10:49] LABS: Troponin I 0.63 ng/mL (< 0.04)
[2019-07-17] MEDS: Budesonide/Formoterol 80/4.5 1 PUFF INH IH SCH ×2 (11:16→19:37)
[2019-07-17] MEDS: Insulin LISPRO 300 UNITS/3 ML VIAL SQ SCH ×4 (12:28→20:48)
[2019-07-17] MEDS: Insulin DETEMIR 100 UNIT/ML X5UNITS SQ SCH (12:31)
[2019-07-17] MEDS: *HR* Heparin 5,000 UNIT/ML VIAL IVP PRN (14:22)
[2019-07-18 02:26] LABS: Basophils % 0.1 %; Hematocrit 46.3 % (37.5-50.1); Hemoglobin 15.3 g/dL (12.9-16.9); Immature Granulocytes % 1.6 % (0-4); Lymphocytes # 1.3 K/mcL (0.6-4.6); Lymphocytes % 7.3 %; Mean Corpuscular Hemoglobin 30.2 pg (28.0-33.3); Mean Corpuscular Volume 91.3 fL (83.0-100.0); Mean Platelet Volume 10.8 fL (9.4-12.4); Monocytes # 0.6 K/mcL (0.0-1.3); Monocytes % 3.3 %; Neutrophils # 15.3 K/mcL (1.6-8.9); Platelet Count 206 K/mcL (140-400); Red Blood Count 5.07 M/mcL (4.19-5.50); Red Cell Distribution Width 14.6 % (11.5-14.5); Segmented Neutrophils % 87.7 %
[2019-07-18 02:30] LABS: White Blood Count 17.4 K/mcL (4.3-11.1)
[2019-07-18 02:47] LABS: BUN/Creatinine Ratio 22 (6-26); Blood Urea Nitrogen 25 mg/dL (8-23); Calcium 9.2 mg/dL (8.6-10.3); Carbon Dioxide 24 mEq/L (23-29); Chloride 103 mEq/L (98-107); Glucose 256 mg/dL (70-105); Osmolality,Calculated 297 (280-300); Potassium 3.8 mEq/L (3.5-5.1); Sodium 137 mEq/L (136-145); eGFR For African Americans > 60 (> 60); eGFR For Non-African Americans > 60 (> 60)
[2019-07-18] MEDS: *HR* Heparin 5,000 UNIT/ML VIAL IVP PRN (03:17)
[2019-07-18] MEDS: Heparin 25,000 UNIT/250 ML D5W 25,000 UNIT/250 ML IV.SOLN IVC SCH ×2 (03:17→20:43)
[2019-07-18] MEDS: Ipratropium/Albuterol Neb 3 ML IH SCH ×6 (03:39→23:41)
[2019-07-18] MEDS: Budesonide/Formoterol 80/4.5 1 PUFF INH IH SCH ×2 (07:27→20:15)
[2019-07-18] MEDS: Azithromycin 250 MG TABLET PO SCH (08:06)
[2019-07-18] MEDS: carvediloL 25 MG TABLET PO SCH (08:06)
[2019-07-18] MEDS: Gabapentin 300 MG CAPSULE PO SCH ×3 (08:07→20:42)
[2019-07-18] MEDS: MethylPREDNISolone 40 MG/ML VIAL IVP SCH (08:07)
[2019-07-18] MEDS: Aspirin Enteric Coated 81 MG Tablet PO SCH (08:07)
[2019-07-18] MEDS: cefTRIAXone 1,000 MG in Water for inj. (sterile) 10 ML IVP SCH (08:08)
[2019-07-18] MEDS: Insulin LISPRO 300 UNITS/3 ML VIAL SQ SCH ×4 (08:22→21:50)
[2019-07-18] MEDS: Insulin DETEMIR 100 UNIT/ML X5UNITS SQ SCH (08:22)
[2019-07-18] MEDS: *HR* GlyBURIDE 5 MG TABLET PO SCH (12:04)
[2019-07-18] MEDS: carvediloL 6.25 MG TABLET PO SCH (17:14)
[2019-07-18] MEDS ORDERED: Perflutren Lipid Microsphere 1.3 ML in 0.9 % Sodium Chloride 8.7 ML IVP ONE (17:49)
[2019-07-18] MEDS ORDERED: MethylPREDNISolone 40 MG/ML VIAL IVP SCH (20:00)
[2019-07-19 01:37] LABS: Hematocrit 46.6 % (37.5-50.1); Hemoglobin 15.2 g/dL (12.9-16.9); Mean Corpuscular HGB Conc 32.6 g/dL (31.6-35.5); Mean Corpuscular Volume 92.1 fL (83.0-100.0); Mean Platelet Volume 10.9 fL (9.4-12.4); Platelet Count 215 K/mcL (140-400); Red Blood Count 5.06 M/mcL (4.19-5.50); Red Cell Distribution Width 14.8 % (11.5-14.5); White Blood Count 17.4 K/mcL (4.3-11.1)
[2019-07-19 02:04] LABS: BUN/Creatinine Ratio 33 (6-26); Blood Urea Nitrogen 33 mg/dL (8-23); Calcium 8.9 mg/dL (8.6-10.3); Carbon Dioxide 25 mEq/L (23-29); Chloride 104 mEq/L (98-107); Glucose 242 mg/dL (70-105); Osmolality,Calculated 299 (280-300); Potassium 4.5 mEq/L (3.5-5.1); Sodium 137 mEq/L (136-145); eGFR For African Americans > 60 (> 60); eGFR For Non-African Americans > 60 (> 60)
[2019-07-19] MEDS: Ipratropium/Albuterol Neb 3 ML IH SCH ×3 (03:50→10:59)
[2019-07-19] MEDS: Heparin 25,000 UNIT/250 ML D5W 25,000 UNIT/250 ML IV.SOLN IVC SCH (08:14)
[2019-07-19] MEDS: cefTRIAXone 1,000 MG in Water for inj. (sterile) 10 ML IVP SCH (08:19)
[2019-07-19] MEDS: Azithromycin 250 MG TABLET PO SCH (08:20)
[2019-07-19] MEDS: Insulin LISPRO 300 UNITS/3 ML VIAL SQ SCH ×2 (08:20→11:34)
[2019-07-19] MEDS: carvediloL 6.25 MG TABLET PO SCH (08:20)
[2019-07-19] MEDS: Aspirin Enteric Coated 81 MG Tablet PO SCH (08:21)
[2019-07-19] MEDS: Gabapentin 300 MG CAPSULE PO SCH (08:21)
[2019-07-19] MEDS: Budesonide/Formoterol 80/4.5 1 PUFF INH IH SCH (08:35)
[2019-07-19] MEDS ORDERED: predniSONE 20 MG TABLET PO SCH (09:00)
[2019-07-19] MEDS ORDERED: Insulin DETEMIR 100 UNIT/ML X5UNITS SQ SCH (09:00)
[2019-07-19 10:53] VITALS: BP 126/85
== END 2019-07-19 14:11 | disposition home or self-care (01) | DRG 871 ==
LOC: 2ANU 02:41 → EMEROOARM 02:41 → SUATTDRO 07:44 → 2ANU 08:04
PROVIDERS: ADMIT Student in an Organized Health Care Education/Training Program; ATTEND Internal Medicine

== ENCOUNTER 2019-08-05 09:11 | Observation (INO) ==
[2019-08-05] MEDS ORDERED: methylPREDNISolone 125 MG/2 ML VIAL IVP ONE (09:25)
[2019-08-05] MEDS ORDERED: Ipratropium/Albuterol Neb 3 ML IH ONE (09:25)
[2019-08-05 09:41] LABS: Basophils # 0.1 K/mcL (0.0-0.2); Basophils % 0.7 %; Eosinophils # 0.4 K/mcL (0.0-0.6); Eosinophils % 5.6 %; Hematocrit 47.8 % (37.5-50.1); Hemoglobin 15.2 g/dL (12.9-16.9); Immature Granulocytes % 1.5 % (0-4); Lymphocytes # 1.6 K/mcL (0.6-4.6); Lymphocytes % 21.2 %; Mean Corpuscular HGB Conc 31.8 g/dL (31.6-35.5); Mean Corpuscular Hemoglobin 29.5 pg (28.0-33.3); Mean Corpuscular Volume 92.6 fL (83.0-100.0); Mean Platelet Volume 10.8 fL (9.4-12.4); Monocytes # 0.6 K/mcL (0.0-1.3); Monocytes % 7.5 %; Neutrophils # 4.7 K/mcL (1.6-8.9); Platelet Count 176 K/mcL (140-400); Red Blood Count 5.16 M/mcL (4.19-5.50); Red Cell Distribution Width 14.5 % (11.5-14.5); Segmented Neutrophils % 63.5 %; White Blood Count 7.5 K/mcL (4.3-11.1)
[2019-08-05 09:50] LABS: Prothrombin Time 11.4 Seconds (9.4-12.1)
[2019-08-05 09:52] LABS: Activated Partial Thrombo Time 36.2 Seconds (26.0-36.0)
[2019-08-05 10:05] LABS: Alanine Aminotransferase 51 Units/L (7-52); Albumin 4.5 g/dL (3.5-5.7); Albumin/Globulin Ratio 1.5 (1.1-2.2); Alkaline Phosphatase 96 Units/L (34-104); Aspartate Amino Transferase 27 Units/L (13-39); BUN/Creatinine Ratio 18 (6-26); Bilirubin,Direct 0.1 mg/dL (0.0-0.2); Bilirubin,Indirect 0.6 mg/dL (0.0-1.0); Bilirubin,Total 0.7 mg/dL (0.3-1.0); Blood Urea Nitrogen 17 mg/dL (8-23); Calcium 9.9 mg/dL (8.6-10.3); Carbon Dioxide 25 mEq/L (23-29); Chloride 103 mEq/L (98-107); Globulin 3.1 g/dL (2.4-3.5); Glucose 178 mg/dL (70-105); Osmolality,Calculated 290 (280-300); Potassium 4.3 mEq/L (3.5-5.1); Sodium 137 mEq/L (136-145); Total Protein 7.6 g/dL (6.4-8.9); Troponin I < 0.03 ng/mL (< 0.04); eGFR For African Americans > 60 (> 60); eGFR For Non-African Americans > 60 (> 60)
[2019-08-05] MEDS ORDERED: Azithromycin 500 MG in 0.9 % Sodium Chloride 250 ML IVPB ONE (11:45)
[2019-08-05] MEDS ORDERED: cefTRIAXone 1,000 MG in Water for inj. (sterile) 10 ML IVP ONE (11:45)
[2019-08-05] MEDS ORDERED: Ondansetron 4 MG/2 ML VIAL IVP PRN (12:39)
[2019-08-05] MEDS ORDERED: Naloxone 0.4 MG/ML INJ IVP PRN (12:39)
[2019-08-05] MEDS ORDERED: *HR* Dextrose 50 % in Water (Vial) 50 ML VIAL IVP PRN (12:44)
[2019-08-05] MEDS ORDERED: D5% in Water 1,000 ML IVC PRN (12:44)
[2019-08-05] MEDS ORDERED: Dextrose Gel 15 GM/37.5 ML TUBE PO PRN ×2 (12:44)
[2019-08-05] MEDS ORDERED: Ipratropium/Albuterol Neb 3 ML IH PRN (12:45)
[2019-08-05] MEDS: Ipratropium/Albuterol Neb 3 ML IH SCH ×2 (16:41→21:50)
[2019-08-05] MEDS: *HR* Heparin 5,000 UNIT/ML VIAL SQ SCH (17:59)
[2019-08-05] MEDS: Nicotine 14 MG PATCH.TD24 TD SCH (18:00)
[2019-08-05] MEDS: carvediloL 6.25 MG TABLET PO SCH (18:00)
[2019-08-05] MEDS: MethylPREDNISolone 40 MG/ML VIAL IVP SCH (18:00)
[2019-08-05] MEDS: Insulin LISPRO 300 UNITS/3 ML VIAL SQ SCH ×2 (18:17→21:53)
[2019-08-05] MEDS ORDERED: Insulin DETEMIR 100 UNIT/ML X5UNITS SQ SCH (21:00)
[2019-08-05] MEDS: Gabapentin 300 MG CAPSULE PO SCH (21:16)
[2019-08-06] MEDS: Ipratropium/Albuterol Neb 3 ML IH SCH ×4 (03:53→22:08)
[2019-08-06] MEDS: *HR* Heparin 5,000 UNIT/ML VIAL SQ SCH ×2 (05:34→17:15)
[2019-08-06] MEDS: MethylPREDNISolone 40 MG/ML VIAL IVP SCH ×2 (05:34→17:15)
[2019-08-06] MEDS: Azithromycin 500 MG in 0.9 % Sodium Chloride 250 ML IVPB SCH (08:19)
[2019-08-06] MEDS: Aspirin Enteric Coated 81 MG Tablet PO SCH (08:19)
[2019-08-06] MEDS: Nicotine 14 MG PATCH.TD24 TD SCH (08:20)
[2019-08-06] MEDS: Gabapentin 300 MG CAPSULE PO SCH ×3 (08:20→20:13)
[2019-08-06] MEDS: carvediloL 6.25 MG TABLET PO SCH ×2 (08:20→17:15)
[2019-08-06] MEDS: Insulin LISPRO 300 UNITS/3 ML VIAL SQ SCH ×4 (08:21→20:13)
[2019-08-06] MEDS ORDERED: Nitroglycerin 0.4 MG TAB.SUBL SL ONE (09:03)
[2019-08-06] MEDS: Nitroglycerin 0.4 MG TAB.SUBL SL PRN ×2 (09:08→09:20)
[2019-08-06 09:48] LABS: Basophils % 0.2 %; Hematocrit 43.2 % (37.5-50.1); Hemoglobin 14.3 g/dL (12.9-16.9); Immature Granulocytes % 1.1 % (0-4); Lymphocytes # 1.1 K/mcL (0.6-4.6); Lymphocytes % 7.9 %; Mean Corpuscular HGB Conc 33.1 g/dL (31.6-35.5); Mean Corpuscular Volume 90.6 fL (83.0-100.0); Mean Platelet Volume 11.2 fL (9.4-12.4); Monocytes # 0.2 K/mcL (0.0-1.3); Monocytes % 1.6 %; Neutrophils # 11.9 K/mcL (1.6-8.9); Platelet Count 164 K/mcL (140-400); Red Blood Count 4.77 M/mcL (4.19-5.50); Red Cell Distribution Width 14.2 % (11.5-14.5); Segmented Neutrophils % 89.2 %
[2019-08-06 09:57] LABS: White Blood Count 13.3 K/mcL (4.3-11.1)
[2019-08-06 10:07] LABS: BUN/Creatinine Ratio 29 (6-26); Blood Urea Nitrogen 26 mg/dL (8-23); Calcium 9.1 mg/dL (8.6-10.3); Carbon Dioxide 18 mEq/L (23-29); Chloride 102 mEq/L (98-107); Glucose 419 mg/dL (70-105); Magnesium 1.6 mg/dL (1.6-2.6); Osmolality,Calculated 297 (280-300); Sodium 132 mEq/L (136-145); eGFR For African Americans > 60 (> 60); eGFR For Non-African Americans > 60 (> 60)
[2019-08-06] MEDS: Budesonide/Formoterol 80/4.5 1 PUFF INH IH SCH ×2 (11:01→22:08)
[2019-08-06] MEDS: Tiotropium 18 MCG inhalation IH SCH (12:15)
[2019-08-06] MEDS: Insulin DETEMIR 100 UNIT/ML X5UNITS SQ SCH (20:13)
[2019-08-07] MEDS: Ipratropium/Albuterol Neb 3 ML IH SCH ×4 (03:32→21:53)
[2019-08-07 05:23] LABS: Hematocrit 43.2 % (37.5-50.1); Mean Corpuscular HGB Conc 32.4 g/dL (31.6-35.5); Mean Corpuscular Hemoglobin 30.1 pg (28.0-33.3); Mean Corpuscular Volume 92.9 fL (83.0-100.0); Platelet Count 162 K/mcL (140-400); Red Blood Count 4.65 M/mcL (4.19-5.50); Red Cell Distribution Width 14.4 % (11.5-14.5); White Blood Count 13.9 K/mcL (4.3-11.1)
[2019-08-07 05:48] LABS: BUN/Creatinine Ratio 34 (6-26); Blood Urea Nitrogen 32 mg/dL (8-23); Calcium 8.9 mg/dL (8.6-10.3); Carbon Dioxide 23 mEq/L (23-29); Chloride 106 mEq/L (98-107); Glucose 327 mg/dL (70-105); Osmolality,Calculated 304 (280-300); Potassium 4.5 mEq/L (3.5-5.1); Sodium 137 mEq/L (136-145); eGFR For African Americans > 60 (> 60); eGFR For Non-African Americans > 60 (> 60)
[2019-08-07] MEDS: MethylPREDNISolone 40 MG/ML VIAL IVP SCH (05:59)
[2019-08-07] MEDS: *HR* Heparin 5,000 UNIT/ML VIAL SQ SCH ×2 (05:59→18:31)
[2019-08-07] MEDS: Insulin LISPRO 300 UNITS/3 ML VIAL SQ SCH ×4 (08:33→20:28)
[2019-08-07] MEDS: carvediloL 6.25 MG TABLET PO SCH (08:33)
[2019-08-07] MEDS: Nicotine 14 MG PATCH.TD24 TD SCH (08:35)
[2019-08-07] MEDS: Aspirin Enteric Coated 81 MG Tablet PO SCH (08:36)
[2019-08-07] MEDS: Gabapentin 300 MG CAPSULE PO SCH ×3 (08:36→20:29)
[2019-08-07] MEDS: Insulin DETEMIR 100 UNIT/ML X5UNITS SQ SCH ×2 (08:36→20:28)
[2019-08-07] MEDS: predniSONE 20 MG TABLET PO SCH (08:36)
[2019-08-07] MEDS: Azithromycin 500 MG in 0.9 % Sodium Chloride 250 ML IVPB SCH (08:36)
[2019-08-07] MEDS ORDERED: Furosemide 40 MG/4 ML VIAL IVP ONE ×2 (09:58→17:00)
[2019-08-07] MEDS: Tiotropium 18 MCG inhalation IH SCH (10:49)
[2019-08-07] MEDS: Budesonide/Formoterol 80/4.5 1 PUFF INH IH SCH ×2 (10:49→21:53)
[2019-08-07] MEDS ORDERED: Heparin 1,000 UNITS/500 mL 500 ML ONE (12:29)
[2019-08-07] MEDS ORDERED: *HR* Heparin 10,000 UNIT/10 ML VIAL ONE (12:29)
[2019-08-07] MEDS ORDERED: ISOVUE-370 200 ML INFUS..BTL ONE (12:29)
[2019-08-07] MEDS ORDERED: 0.9 % Sodium Chloride 1,000 ML ONE (12:29)
[2019-08-07] MEDS ORDERED: Nitroglycerin 1,000 MCG/10 ML VIAL IV ONE (12:29)
[2019-08-07] MEDS ORDERED: *HR* Midazolam HCl 2 MG/2 ML VIAL ONE (12:42)
[2019-08-07] MEDS ORDERED: *HR* FentaNYL (PF) 100 MCG/2 ML VIAL ONE (12:42)
[2019-08-07] MEDS ORDERED: Furosemide 40 MG/4 ML VIAL ONE (18:37)
[2019-08-07] MEDS: Metoprolol XL (24 HR) Succ 50 MG TAB.ER.24H PO SCH (20:29)
[2019-08-08] MEDS: Ipratropium/Albuterol Neb 3 ML IH SCH (04:04)
[2019-08-08] MEDS: *HR* Heparin 5,000 UNIT/ML VIAL SQ SCH (06:01)
[2019-08-08 07:32] VITALS: BP 144/94
[2019-08-08] MEDS: Insulin LISPRO 300 UNITS/3 ML VIAL SQ SCH (08:00)
[2019-08-08] MEDS: Nicotine 14 MG PATCH.TD24 TD SCH (08:02)
[2019-08-08] MEDS: Aspirin Enteric Coated 81 MG Tablet PO SCH (08:02)
[2019-08-08] MEDS: Gabapentin 300 MG CAPSULE PO SCH (08:02)
[2019-08-08] MEDS: predniSONE 20 MG TABLET PO SCH (08:04)
[2019-08-08] MEDS: Metoprolol XL (24 HR) Succ 50 MG TAB.ER.24H PO SCH (08:04)
[2019-08-08] MEDS: Insulin DETEMIR 100 UNIT/ML X5UNITS SQ SCH (08:07)
== END 2019-08-08 10:19 | disposition home or self-care (01) ==
LOC: EMEROOARM 09:11 → 3BNU 09:11
PROVIDERS: ADMIT Internal Medicine; ATTEND Internal Medicine